=== PATIENT | male | born 1970 | race Caucasian/White ===

== ENCOUNTER 2018-06-10 11:22 | Inpatient (IN) | payer MEDICAID ==
[2018-06-10] MEDS ORDERED: LORazepam INJ* 2 MG/ML 1 ML VIAL IV PUSH ONE ×4 (11:49→16:46)
[2018-06-10] MEDS ORDERED: NS 0.9% 1000 ML* 1,000 ML IV ONE (11:49)
[2018-06-10] MEDS ORDERED: Thiamine IV* 100 MG, Folic Acid IV* 1 MG, Multiple Vitamin IV ADULT* 10 ML in NS 0.9% 1... IV ONE (11:50)
--- NOTE | 2018-06-10 11:51 | ED ---
Syncope/Near Syncope - HPI Summary HPI Summary: This is saman Gonzalez documenting for attending Ernestina Gaffney M.D. Pt is a 48 y/o M BIBA w/ c/o a seizure onsetting today at 1000. Pt was at a musical festival today when seizure occurred. Seizure was witnessed by his partner. Pt denies Hx of seizures and states this is his first. He notes he is an alcoholic and normally drinks about 6 beers per day. He reports that he has not had any alcohol in the past 8 hours and needs alcohol to maintain function. Pt believes lack of alcohol could have induced seizure. In the room, he reports that he is, "not feeling bad". On triage, pain is denied. However, in room he notes left shoulder pain. He reports Hx of dislocating this shoulder. Pain onset of shoulder was after seizure. He notes that he smokes marijuana, denies any relevant medical conditions, and reports NKDA. - History Of Current Complaint Chief Complaint: EDSeizure Time Seen by Provider: 06/10/18 11:28 Hx Obtained From: Patient Onset/Duration: Sudden Onset, Resolved - no longer syncopal Timing: Hours - onset reported to be at 1000 today Context: Witnessed - Pt reports partner witnessed Activity At Onset: Other - at music festival Aggravating Factor(s): Other - possibly alcohol withdrawal Alleviating Factor(s): Nothing Associated Signs And Symptoms: Other - No other associated symptoms noted by Pt - Allergies/Home Medications Allergies/Adverse Reactions: Allergies Allergy/AdvReac Type Severity Reaction Status Date / Time No Known Allergies Allergy Verified 06/10/18 11:34 Home Medications: Home Medications NK [No Home Medications Reported] 06/10/18 [History Confirmed 06/10/18] PMH/Surg Hx/FS Hx/Imm Hx Sensory History: Denies: Hx Legally Blind, Hx Deafness Opthamlomology History: Denies: Hx Legally Blind EENT History: Denies: Hx Deafness Infectious Disease History: No Infectious Disease History: Denies: Traveled Outside the [place] in Last 30 Days - Family History Known Family History: Negative: Blood Disorder - Social History Alcohol Use: Daily - reports 6 beers per day is typical amount Substance Use Type: Reports: Marijuana Smoking Status (MU): Heavy Every Day Tobacco Smoker Review of Systems Negative: Fever Positive: Syncope - resolved All Other Systems Reviewed And Are Negative: Yes Physical Exam - Summary Physical Exam Summary: GENERAL: Patient is a well developed and nourished male who is lying comfortable in the stretcher. Patient is not in any acute respiratory distress. Tremors are noted in Pt. HEAD AND FACE: Normocephalic EYES: PERRLA, EOMI x 2. EARS: Hearing grossly intact. MOUTH: Oropharynx within normal limits. NECK: Supple, trachea is midline, no adenopathy, no JVD, no carotid bruit. CHEST: Symmetric, no tenderness at palpation LUNGS: Clear to auscultation bilaterally. No wheezing or crackles. CVS: Regular rate and rhythm, S1 and S2 present, no murmurs or gallops appreciated. ABDOMEN: Soft, non-tender. Bowel sounds are normal. No abdominal abnormal pulsations. EXTREMITIES: Full ROM in all major joints, no edema, no cyanosis or clubbing. Tenderness to palpation of the left shoulder. NEURO: Alert and oriented x 3. No acute neurological deficits. Speech is normal and follows commands. GCS 15 SKIN: Dry and warm Triage Information Reviewed: Yes Vital Signs On Initial Exam: Initial Vitals Temp Pulse Resp BP Pulse Ox 99.7 F 88 16 147/99 97 06/10/18 11:29 06/10/18 11:29 06/10/18 11:29 06/10/18 11:29 06/10/18 11:29 Vital Signs Reviewed: Yes - [place] Coma Scale Best Eye Response: 4 - Spontaneous Best Motor Response: 6 - Obeys Commands Best Verbal Response: 5 - Oriented Coma Scale Total: 15 Diagnostics - Vital Signs Vital Signs Temp Pulse Resp BP Pulse Ox 06/10/18 11:29 99.7 F 88 16 147/99 97 - Laboratory Result Diagrams: 06/10/18 12:46 06/10/18 12:46 Lab Statement: Any lab studies that have been ordered have been reviewed, and results considered in the medical decision making process. - Radiology humerus left x-ray Radiology Interpretation Completed By: Radiologist - Subacute to chronic appearing fracture of the lateral clavicle osteoarthritis. This report was reviewed by ED physician. 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 This report was reviewed by ED physician. Re-Evaluation - Re-Evaluation First Eval Re-Evaluation Time: 11:58 Comment: Pt vomited in the room. It was noted there appeared to be a little blood in the vomit. Dr. Gaffney gave IV and Zofran to Pt. Second Eval Re-Evaluation Time: 15:39 Comment: Pt is apparently hallucinating and trying to touch everything in the room. Dr. Gaffney talked with patient. Pt appears agitated. Third Eval Re-Evaluation Time: 16:02 Comment: Pt informed they will be brought to ICU soon. Course/Dx Assessment/Plan: Pt is a 48 y/o M BIBA w/ c/o a seizure onsetting today at 1000. Pt was at a musical festival today when seizure occurred. Seizure was witnessed by his partner. Pt denies Hx of seizures and states this is his first. He notes he is an alcoholic and normally drinks about 6 beers per day. He reports that he has not had any alcohol in the past 8 hours and needs alcohol to maintain function. Pt believes lack of alcohol could have induced seizure. In the room, he reports that he is, "not feeling bad". On triage, pain is denied. However, in room he notes left shoulder pain. He reports Hx of dislocating this shoulder. Pain onset of shoulder was after seizure. He notes that he smokes marijuana, denies any relevant medical conditions, and reports NKDA. Physical exam noted tenderness to palpation of left shoulders and that patient is tremulous. GCS was 15. Pt later vomited in the room. There appeared to be a small amount of blood in emesis. Patient was given fluids and Zofran. Left humerus and shoulder x-ray impressions are listed above. Lactic Acid was noted to be 4.0 and sodium 125. At 14:38, Dr. Chavira was consulted. He recommened consulting a hospitalist for possible admission of Pt. At 14:55, Dr. Oneal was consulted. Dr. Oneal accepts Pt for admission. Pt was diagnosed with a seizure and hyponatremia. At 15:39, it was noted that the patient became agitated and was reportedly having visual hallucinations. Pt's admission was upgraded to ICU. Dr. Borden was consulted and came to see Pt in ED at 15:50. Pt accepted to ICU with plan to initiate a precedex drip. - Diagnoses Provider Diagnoses: Hyponatremia, Seizure - Physician Notifications Discussed Care of Patient With: Keith Chavira Time Discussed With Above Provider: 14:38 Instructed by Provider To: Other - Dr. Chavira was consulted at 14:[address] Chavira recommended talking to Dr. Oneal for admission. 14:55 -- Dr. Oneal consulted. She accepts Pt for admission to hospital. 15:50 -- Dr. Borden was consulted about Pt, he suggests getting patient upstairs soon. - Critical Care Time Critical Care Time: 30-74 min Discharge - Sign-Out/Discharge Documenting (check all that apply): Patient Departure - admit - Discharge Plan Condition: Fair Disposition: ADMITTED TO [facility] - Billing Disposition and Condition Condition: FAIR Disposition: Admitted to [facility]
[2018-06-10] MEDS ORDERED: Multiple Vitamin IV ADULT* 10 ML VIAL ONE (11:54)
[2018-06-10] MEDS ORDERED: Ondansetron INJ* 2 MG/ML VIAL IV ONE (11:58)
[2018-06-10] MEDS ORDERED: Pantoprazole IV* 40 MG IV ONE (11:59)
--- NOTE | 2018-06-10 12:48 | RAD ---
HISTORY: injury, chronic left shoulder dislocation COMPARISONS: None VIEWS: 7, Frontal internal rotation, external rotation, and outlet views of the left shoulder with frontal internal and external rotation views of the left humerus. FINDINGS: BONE DENSITY: Normal. BONES: There is a subacute to chronic appearing fracture of the lateral clavicle, with callus formation. The fracture line is still visible. There is no displacement.. JOINTS: There is mild osteoarthritis of the a.c. and glenohumeral joints. ALIGNMENT: There is no dislocation. SOFT TISSUES: Unremarkable. OTHER FINDINGS: None. IMPRESSION: SUBACUTE TO CHRONIC APPEARING FRACTURE OF THE LATERAL CLAVICLE. OSTEOARTHRITIS.
[2018-06-10 13:10] LABS: ABS Basophils 0 10^3/ul (0-0.2); ABS Eosinophils 0 10^3/ul (0-0.6); ABS Lymphocytes 0.4 10^3/ul (1.0-4.8); ABS Monocytes 0.8 10^3/ul (0-0.8); ABS Neutrophils 6.1 10^3/ul (1.5-7.7); ABS Nucleated RBC 0 10^3/ul; Eosinophil % 0.1 % (0-6); Hematocrit 34 % (42-52); Hemoglobin 11.6 g/dl (14.0-18.0); Lymphocyte % 6.1 % (25-47); Mean Corpuscular HGB Conc 34 g/dl (31-36); Mean Corpuscular Hemoglobin 31 pg (27-31); Mean Corpuscular Volume 91 fL (80-94); Mean Platelet Volume 8.7 um3 (7.4-10.4); Nucleated Red Blood Cells % 0; Platelet Count 118 10^3/ul (150-450); Red Blood Count 3.79 10^6/ul (4.00-5.40); Red Cell Distribution Width 17 % (10.5-15); White Blood Count 7.3 10^3/ul (3.5-10.8)
[2018-06-10 13:22] LABS: EGFR Non-African American 148.9 (>60)
[2018-06-10] MEDS ORDERED: LORazepam INJ* 2 MG/ML 1 ML VIAL ONE ×2 (14:23→16:47)
[2018-06-10] MEDS ORDERED: Thiamine IV 100 MG, Folic Acid IV* 1 MG, Multiple Vitamin IV ADULT* 10 ML in NS 0.9% 10... IV ONE (15:19)
[2018-06-10] MEDS ORDERED: NS 0.9% 1000 ML* 1,000 ML IV SCH (15:30)
[2018-06-10 15:51] LABS: INR 0.92 (0.77-1.02)
--- NOTE | 2018-06-10 16:11 | CONSULT ---
Consult Consult: PCCM Consult CC: Seizure HPI: 48M with h/o alcohol dependence presents with a seizure. The patient is confused and provides limited history. Majority of history obtained from his health care proxy/significant other. Patient drinks approximately 12 beers per day since the age of 19. Last drink was at 5am. After about 8 hours without alcohol he begins to get tremors. He fell over on the cough and began shaking. He does not remember the incident. He has never had any seizures before. Denies any head trauma. ROS - 10 systems reviewed with the patient and are negative except where stated in the HPI PMHx - EtoH dependence PSHx - hand surgery All - nkda SocHx - 12 beers daily, +smoker, denies drugs FamHx - denies PE Vital Signs: Temp Pulse Resp BP Pulse Ox 99.7 F 98 16 147/99 99 06/10/18 11:29 06/10/18 12:00 06/10/18 14:35 06/10/18 11:29 06/10/18 12:00 Gen - frail, tremulous, poor hygeine HEENT - NCAT, EMOI Neck - no jvd, no thyromegaly CV - s1/s2, no murmur Pulm - cta, no wheeze Abd - soft, nt Ext - no c/c/e Neuro - tremulous, awake and following commands but confused Labs Laboratory Results - last 24 hr 06/10/18 06/10/18 06/10/18 12:45 12:45 12:46 WBC 7.3 RBC 3.79 L Hgb 11.6 L Hct 34 L MCV 91 MCH 31 MCHC 34 RDW 17 H Plt Count 118 L MPV 8.7 Neut % (Auto) 83.0 Lymph % (Auto) 6.1 L Roosevelt % (Auto) 10.4 H Eos % (Auto) 0.1 Baso % (Auto) 0.4 Absolute Neuts (auto) 6.1 Absolute Lymphs (auto) 0.4 L Absolute Monos (auto) 0.8 Absolute Eos (auto) 0 Absolute Basos (auto) 0 Absolute Nucleated RBC 0 Nucleated RBC % 0 INR (Anticoag Therapy) 0.92 Sodium Potassium Chloride Carbon Dioxide Anion Gap BUN Creatinine Est GFR ( Amer) Est GFR (Non-Af Amer) BUN/Creatinine Ratio Glucose Lactic Acid 4.0 H* Calcium Magnesium Total Bilirubin AST ALT Alkaline Phosphatase Total Protein Albumin Globulin Albumin/Globulin Ratio Cortisol Serum Alcohol 06/10/18 12:46 WBC RBC Hgb Hct MCV MCH MCHC RDW Plt Count MPV Neut % (Auto) Lymph % (Auto) Roosevelt % (Auto) Eos % (Auto) Baso % (Auto) Absolute Neuts (auto) Absolute Lymphs (auto) Absolute Monos (auto) Absolute Eos (auto) Absolute Basos (auto) Absolute Nucleated RBC Nucleated RBC % INR (Anticoag Therapy) Sodium 125 L Potassium 3.4 L Chloride 88 L Carbon Dioxide 23 Anion Gap 14 H BUN 3 L Creatinine 0.58 L Est GFR ( Amer) 180.2 Est GFR (Non-Af Amer) 148.9 BUN/Creatinine Ratio 5.2 L Glucose 110 H Lactic Acid Calcium 8.9 Magnesium 1.2 L Total Bilirubin 2.00 H AST 116 H ALT 36 Alkaline Phosphatase 149 H Total Protein 6.8 Albumin 3.4 Globulin 3.4 Albumin/Globulin Ratio 1.0 Cortisol 47.20 Serum Alcohol < 10 Imagin06/10/18 Left Shoulder Xray IMPRESSION:SUBACUTE TO CHRONIC APPEARING FRACTURE OF THE LATERAL CLAVICLE. OSTEOARTHRITIS. Impression: 48M with etoh dependence presents with etoh withdrawal seizure / delirium tremens. Hyponatremia Neuro - DTs - ativan per protocol - fall/seizure precautions - may need precedex gtt - antiemetics prn - SW/PT consults CV - - hemodynamically stable Pulm - oxygenating well on room air ID - no evidence of infection - monitor fever curve GI / Nutrition - thiamine / folate / mvi - nutrition consult - diet as tolerated Renal - hyponatremia - 2/2 beer potomania - check urine lytes - check serum osm - replete magnesium Heme - monitor cbc Endo - check tsh/cortisol - check fs Lines - piv PPx - gi/dvt Ethics - discussed with HCP at bedside thinks patient would want to be DNR but needs to discuss with him further Critical Care Time: 50 minutes
[2018-06-10] MEDS ORDERED: PHENobarbital SODIUM(*) 65 MG/ML VIAL IV ONE ×2 (16:53)
[2018-06-10] MEDS ORDERED: PHENobarbital SODIUM(*) 65 MG/ML VIAL ONE (16:58)
[2018-06-10] MEDS ORDERED: Magnesium Sulfate IV* 2 GM in NS 0.9% 100 ML* 100 ML IVPB ONE (17:00)
[2018-06-10] MEDS ORDERED: NS 0.9% 100 ML* 100 ML ONE (17:22)
[2018-06-10] MEDS: KCL 10 MEQ/50 ML IVPREMIX* 10 MEQ/50 ML BAG IV SCH ×3 (17:35→21:55)
[2018-06-10] MEDS: LORazepam INJ* 2 MG/ML 1 ML VIAL IV PUSH SCH ×2 (18:30→22:18)
[2018-06-10 18:49] LABS: Urine Appearance Clear; Urine Blood Negative (Negative); Urine Color Straw; Urine Ketones Negative (Negative); Urine Protein Negative (Negative); Urine Specific Gravity 1.002 (1.010-1.030); Urine Urobilinogen Negative (Negative)
[2018-06-10] MEDS: Dexmedetomidine* 400 MCG in NS 0.9% 100 ML* 96 ML IVPB SCH (19:14)
[2018-06-10] MEDS: LORazepam INJ* 2 MG/ML 1 ML VIAL IV SCH ×2 (19:24→23:55)
--- NOTE | 2018-06-10 19:34 | HP ---
CC: Dr. Chavira * HISTORY AND PHYSICAL: DATE OF ADMISSION: 06/10/18 PRIMARY CARE PROVIDER: None. ATTENDING PHYSICIAN WHILE IN THE HOSPITAL: Dr. Raysa Oneal * (report dictated by Paddy Lamar NP). CONSULTING NEUROLOGIST: Dr. Chavira. CHIEF COMPLAINT: Seizure. HISTORY OF PRESENT ILLNESS: I would like to preface the report by saying that the patient is undergoing what appears to be DTs. He has a long-standing history of heavy alcoholism and had a seizure today, it is also postictal. Most of the history is really unable to be obtained from the patient. Last thing he remembers is he was asking his partner for a beer at [employer] and then, the partner turned away and then the next thing she knew was he was on the ground, biting his lips, he was shaking, he was grunting, he was confused. He did not know where he was. She was thinking that he was having a seizure according to the partner. She called 911. He does not recall this. To the patient's knowledge, he has never had a seizure before. Apparently, there were no reports of history of seizures. He has had trouble with alcoholism for some time. He has been with this partner for about 6 years and as long as she has known him, he has been heavy drinker. There have been also reports of head trauma in the past as a child, but he again never had any further workup for that. He had what appeared to be again a seizure like episode today. He was brought into the hospital. His alcohol level was less than 10. He was noted to be delirious, confused, again very restless and agitated. He appeared to be going through withdrawals. We were asked to evaluate for admission. PAST MEDICAL HISTORY: Denied. PAST SURGICAL HISTORY: He has had surgery on his finger. MEDICATIONS: Home meds denied. ALLERGIES TO MEDICATIONS: Include no known drug allergies. FAMILY HISTORY: His mother was also an alcoholic. She had a history of breast cancer and father's history was reviewed, but noncontributory. There were no reports of alcoholism with his father. As far as they know he believes he was healthy. Again, this was obtained from the partner. SOCIAL HISTORY: He is about a 4-grsn-a-day smoker. He has been smoking from teenage years. He is a musician. He does drink about 12 beers canned beer a day. He does smoke marijuana occasionally. There were no reports of any other illicit drug use. Surrogate decision maker is unable to be obtained at this point as the patient cannot appoint one. REVIEW OF SYSTEMS: Unable to be obtained directly from the patient given the fact that he is again very delirious. PHYSICAL EXAMINATION GENERAL: At this time, Mr. Cadet is a 48-year-old male patient. He is sitting in the ED stretcher. He clearly appears to be again delirious. He does appear to be actively withdrawn. He appears to be well nourished and well developed. VITAL SIGNS: Blood pressure 147/99, pulse 88, respirations 16, O2 sat 97%, temperature 99.7. HEENT: Head: Atraumatic and normocephalic. Eyes: EOMs are intact. Sclerae anicteric and not pale. Throat: Oral mucosa appears to be dry. No oropharyngeal erythema. NECK: Supple. LUNGS: Clear to auscultation bilaterally. No wheezes, rales, or rhonchi. HEART: Sounds S1, S2. Regular rate and rhythm. No murmurs, rubs, or gallops. ABDOMEN: Soft, flat, nontender with bowel sounds are present. EXTREMITIES: Pulses were 2+ throughout. He is moving all 4 extremities. NEUROLOGICAL: Again, he is alert to himself. He knows his name. He knows he is in the hospital. He thinks he is in [place]. He is confused to the month. Again, grossly he is moving all his 4 extremities. He follows very simple commands at this point. He does have verbal response to verbal stimuli. His speech was clear. His tongue was midline. He had not gross obvious focal deficits. SKIN: His skin was intact. DIAGNOSTIC STUDIES/LAB DATA: His labs today are revealing a WBC of 7.3, RBC of 3.79, hemoglobin of 11.6, hematocrit 34, platelet count of 118. INR is pending. His sodium was 125, potassium was 3.4, chloride was 88, bicarb 23, BUN 3, creatinine of 0.58, glucose was 110, lactate 4, calcium 8.9. Total bili 2, AST 16, ALT 36, alk phos 149. Albumin 3.4. Toxicology was negative for alcohol. Brain CT is pending. Shoulder x-ray showed a [id number] appearing fracture of the lateral clavicle, osteoarthritis. Humerus x-ray again shows [id number] appearing fracture of the lateral clavicle, osteoarthritis. Head CT and neck CT are pending. Old medical records were reviewed. ASSESSMENT AND PLAN: Mr. Cadet is a 48-year-old male patient coming into the ED today with complaints of seizure-like activity and delirium. We were asked to evaluate for admission. He will be admitted under inpatient status for: 1. Seizure. I expect that this is probably secondary to alcohol withdrawal given his history. We would like to get a CT brain. I am going to try to give him Ativan to try to get him calm enough to get the CT. As of right now, he is very restless and moving all over and cannot sit still. A CT at this point would be not beneficial. I would like try to use the benzos to get him calm, so we can get this done, and I suspect the reason he is so agitated and delirious again because of EtOH withdrawal. He may have other drugs on board, U -tox is pending. Dr. Chavira will be in to evaluate the patient. 2. Alcoholism. At this point, I do offer a social work consult. I am giving him banana bag. I will also place thiamine and folate. I am checking INR. 3. Hyponatremia. Again, probably secondary to alcoholism, but I am sending off urine random sodium, urine osmol, serum osmol, TSH, and cortisol. I will hydrate him with normal saline. Repeat that at 1800 to make sure that those electrolytes are correcting appropriately. We will continue to follow him. 4. Lactic acidosis. It is probably secondary to seizure. We will repeat this. I do not think he is actively infected. I did add on a CK because of the possible seizure as well. 5. Hypokalemia. I am repeating. 6. Thrombocytopenia. Probably secondary to alcoholism, we will monitor this. 7. Elevated LFTs. Again probably secondary to alcoholism, I am going to trend these and repeat these tomorrow. 8. DVT prophylaxis. We will order SCDs. 9. Code status. Full code. 10. Fluids, electrolytes, and nutrition. He can have a regular diet should he cooperate. TIME SPENT: On admission was 60 minutes, greater than half of the time was spent [id number] with the patient obtaining my history and physical, other half of the time spent going over the plan of care with the patient and implementing the plan of care. I did discuss the plan of care with my attending, Dr. Oneal, she is in agreement. PADDY LAMAR, BRITTNY [id number]/[facility] #: [id number] ANGELI
[2018-06-10 21:17] LABS: EGFR Non-African American 123.9 (>60)
--- NOTE | 2018-06-10 21:20 | CONS ---
NEUROLOGY CONSULTATION: DATE OF CONSULT: 06/10/18 LOCATION: He is in ICU, bed 3. REFERRING PROVIDER: Paddy Lamar NP CHIEF COMPLAINT: Seizures, delirium. HISTORY OF PRESENT ILLNESS: Tomás Cadet is a 48-year-old man, who was brought into the emergency room after a seizure [place] [employer]. He is reportedly a heavy drinker and has been for decades. He had not had any alcohol apparently in the order of 8 hours or so. He convulsed and hit the ground and was brought into the emergency room. In the emergency room, he had an agitated delirium. He had a number of electrolyte abnormalities listed below. He was given multiple doses of Ativan. He was not able to get a CT scan of the head because of his agitation. He was given intravenous multivitamins including thiamine and folic acid. Potassium was supplemented as well as magnesium. There are no other records available. A friend who has known him for 6 years is present. She confirms he is a heavy drinker. She says that to her knowledge, he has never had a seizure before. Apparently, he is on no medications at home. MEDICATIONS: He is currently on include: 1. Folic acid, lorazepam by [facility] protocol and p.r.n. 2. Magnesium and potassium have been supplemented. 3. He has received 1 dose of IV Protonix. 4. 60 mg of 1 dose of IV phenobarbital and another 65 mg dose. ALLERGIES: He is listed as having no allergies, although he is not able to provide history himself. SOCIAL HISTORY: Substance use includes daily alcohol, heavy tobacco smoke, marijuana. His friend of 6 years says that the only drug that he does that she is aware of when he was younger. REVIEW OF SYSTEMS: Otherwise is unobtainable. PHYSICAL EXAM: He is sedated, thin, somewhat poorly kempt individual, lying in the intensive care unit bed. He has mittens on because of his restlessness. He has temperature of 101.5 by temporal scan, blood pressure 140/98, heart rate around 100, respiratory rate in the 20s with 96% oxygen saturation. He has abrasion on his left knee and the back of his left hamstring. Head is atraumatic. Oral mucosa is dry and dentition is poor, but I do not see any oral trauma. Heart is in a regular rhythm without murmurs. There are no cervical bruits. On neurologic exam, pupils are small, perhaps 2 mm, reacting minimally to light. Eye movements are roving disconjugate. Funduscopic exam reveals sharp discs seen just briefly in the left eye and the right eye. Facial sensation at nasal tickle is weakly symmetrical. He seems to be mouthing words intermittently. He does not open his eyes spontaneously. He is moving his hands restlessly and continuously. He is moving his legs restlessly, but not very often. Muscle tone seems increased in all limbs. There is no myoclonus or asterixis noted. Reflexes are brisk in his lower extremities. He has a right Babinski sign where the left is equivocal. DIAGNOSTIC STUDIES/LAB DATA: Includes a serum alcohol less than 10. Chemistry profile with initial sodium of 125, potassium 3.4, anion gap 14, BUN is just 3, and creatinine 0.58. Glucose is 110, serum osmolality low at 260. Lactic acid at presentation was 4.0. Magnesium was low at 1.2. Total bilirubin high at 2, AST and alkaline phosphatase are elevated. Creatine kinase elevated at 859. INR is normal at 0.92. Initial CBC notable for hemoglobin of 11.6, platelet count of 118,000, white blood cell count 7.3. IMPRESSION: Probable alcohol withdrawal seizures. He has multiple electrolyte abnormalities and some liver function abnormalities as well. He is starting to spike a temperature and infection is a possibility as well. PLAN: He needs a CT scan of his brain to rule out intracranial hemorrhage. If his fever continues to mount and no source is found, he should have a lumbar puncture done. He may need stronger sedation and intubation. Discussed my recommendations with Dr. Garcia. An EEG is currently being attempted, but he is pretty restless and I do not get any useful information. When he is more sedated, we can try to repeat it if not. I would hold off on anticonvulsants now other than benzodiazepine protocol and the phenobarbital that he has already received. If his EEG shows epileptiform activity, then that recommendation will change. We will continue to follow him along with you. Dr. Erin Bose will be extension service advisor as of [facility] and this weekend. I will sign off his case to her. [id number]/[facility] #: [id number] HUDSON VALLEY HOSPITALRafael
[2018-06-10] MEDS ORDERED: KCL 10 MEQ/50 ML IVPREMIX* 10 MEQ/50 ML BAG ONE (21:54)
--- NOTE | 2018-06-10 22:25 | RAD ---
Indication: Seizure. Comparison: No relevant prior exams available on the [facility] PACS for comparison. Technique: Noncontrast CT vertex of skull through foramen magnum. Report: Motion artifact degrades image quality. Moderate prominence of the cerebral sulci and proportional enlargement of the ventricles. Patent basal cisterns. Decreased density in the periventricular and subcortical white matter while non-specific is most likely due to chronic microangiopathy. Negative for [place] matter white matter obscuration, intra or extra-axial hemorrhage, or mass effect. No suspicious calvarial or skull base lesion evident. Clear paranasal sinuses and mastoid air spaces. Negative for scalp hematoma. IMPRESSION: #. No acute intracranial process evident. #. Involutional change and stigmata of chronic small vessel ischemic disease.
--- NOTE | 2018-06-10 22:29 | RAD ---
INDICATION: Seizure. COMPARISON: No relevant prior exams available on the [facility] for comparison. TECHNIQUE: Multidetector CT images foramen magnum to lung apices without contrast. Multiplanar reformation. REPORT: Normal vertebral alignment accounting for exam positioning without spondylolisthesis or subluxation at any level. Negative for cervical vertebral body or posterior element fracture. Negative for paravertebral hematoma. At C4-C5 there is moderate disc space narrowing. Uncinate process spurring and facet joint osteoarthritis results in mild LEFT foraminal stenosis. At C5-C6 there is severe disc space narrowing. Dorsal disc osteophyte complex results in only mild impression on the ventral margin of the thecal sac. Uncinate process spurring and facet joint osteoarthritis results in moderate LEFT foraminal stenosis. IMPRESSION: #. No CT evidence for traumatic cervical spine injury.
[2018-06-11 00:39] LABS: EGFR Non-African American 168.9 (>60)
[2018-06-11] MEDS: LORazepam INJ* 2 MG/ML 1 ML VIAL IV PUSH SCH ×9 (02:06→22:14)
[2018-06-11] MEDS: Dexmedetomidine* 400 MCG in NS 0.9% 100 ML* 96 ML IVPB SCH ×4 (04:25→23:10)
[2018-06-11 05:27] LABS: ABS Basophils 0 10^3/ul (0-0.2); ABS Eosinophils 0.1 10^3/ul (0-0.6); ABS Lymphocytes 0.8 10^3/ul (1.0-4.8); ABS Monocytes 0.6 10^3/ul (0-0.8); ABS Neutrophils 4.4 10^3/ul (1.5-7.7); ABS Nucleated RBC 0 10^3/ul; Eosinophil % 1.8 % (0-6); Hematocrit 31 % (42-52); Hemoglobin 10.9 g/dl (14.0-18.0); Lymphocyte % 13.1 % (25-47); Mean Corpuscular HGB Conc 35 g/dl (31-36); Mean Corpuscular Hemoglobin 32 pg (27-31); Mean Corpuscular Volume 91 fL (80-94); Mean Platelet Volume 8.5 um3 (7.4-10.4); Nucleated Red Blood Cells % 0; Platelet Count 108 10^3/ul (150-450); Red Blood Count 3.41 10^6/ul (4.00-5.40); Red Cell Distribution Width 16 % (10.5-15); White Blood Count 5.9 10^3/ul (3.5-10.8)
[2018-06-11 05:45] LABS: EGFR Non-African American 180.9 (>60)
--- NOTE | 2018-06-11 07:55 | PN ---
Date of Service: 06/11/18 Critical Care Services: 48M with etoh dependence presents with DTs/Withdrawal seizure/hyponatremia 06/11: patient on precedex gtt. ct head neg for bleed. hyponatremia resolved. Vital Signs: Temp Pulse Resp BP SpO2 FiO2 97.0 F 58 17 146/83 91 06/11/18 06:00 06/11/18 06:00 06/11/18 06:05 06/11/18 06:00 06/11/18 06:00 Physical Exam: Gen - frail, tremulous, poor hygeine HEENT - NCAT, EMOI Neck - no jvd, no thyromegaly CV - s1/s2, no murmur Pulm - cta, no wheeze Abd - soft, nt Ext - no c/c/e Neuro - tremulous, altered, not following commands, moving all extremities Fluid Balance (Past 24 Hours): I= O= Net Intake & Output 06/09/18 06/10/18 06/11/18 06/12/18 06:59 06:59 06:59 06:59 Intake Total 2378.7 Output Total 1701 Balance 677.7 Weight 58 kg Intake: IV Fluids 2004 Banana Bag 1033 NS (0.9%) 972 IVPB 303 KCl and Mg 303 Medicated IV 70.7 CC - Dexmedetomidine/ 70.7 Precedex Output: Urine 175 Powell 1526 Other: # Voids 1 Labs: Laboratory Results - last 24 hr 06/10/18 06/10/18 06/10/18 12:45 12:45 12:46 WBC 7.3 RBC 3.79 L Hgb 11.6 L Hct 34 L MCV 91 MCH 31 MCHC 34 RDW 17 H Plt Count 118 L MPV 8.7 Neut % (Auto) 83.0 Lymph % (Auto) 6.1 L Socorro % (Auto) 10.4 H Eos % (Auto) 0.1 Baso % (Auto) 0.4 Absolute Neuts (auto) 6.1 Absolute Lymphs (auto) 0.4 L Absolute Monos (auto) 0.8 Absolute Eos (auto) 0 Absolute Basos (auto) 0 Absolute Nucleated RBC 0 Nucleated RBC % 0 INR (Anticoag Therapy) 0.92 Sodium Potassium Chloride Carbon Dioxide Anion Gap BUN Creatinine Est GFR ( Amer) Est GFR (Non-Af Amer) BUN/Creatinine Ratio Glucose Serum Osmolality Lactic Acid 4.0 H* Calcium Magnesium Total Bilirubin AST ALT Alkaline Phosphatase Total Creatine Kinase Total Protein Albumin Globulin Albumin/Globulin Ratio Cortisol Urine Color Urine Appearance Urine pH Ur Specific Conway Urine Protein Urine Ketones Urine Blood Urine Nitrate Urine Bilirubin Urine Urobilinogen Ur Leukocyte Esterase Urine Osmolality Ur Random Sodium Urine Glucose Urine Opiates Screen Ur Barbiturates Screen Ur Phencyclidine Scrn Ur Amphetamines Screen U Benzodiazepines Scrn Urine Cocaine Screen U Cannabinoids Screen Serum Alcohol 06/10/18 06/10/18 06/10/18 12:46 12:46 18:35 WBC RBC Hgb Hct MCV MCH MCHC RDW Plt Count MPV Neut % (Auto) Lymph % (Auto) Socorro % (Auto) Eos % (Auto) Baso % (Auto) Absolute Neuts (auto) Absolute Lymphs (auto) Absolute Monos (auto) Absolute Eos (auto) Absolute Basos (auto) Absolute Nucleated RBC Nucleated RBC % INR (Anticoag Therapy) Sodium 125 L Potassium 3.4 L Chloride 88 L Carbon Dioxide 23 Anion Gap 14 H BUN 3 L Creatinine 0.58 L Est GFR ( Amer) 180.2 Est GFR (Non-Af Amer) 148.9 BUN/Creatinine Ratio 5.2 L Glucose 110 H Serum Osmolality 260 L Lactic Acid Calcium 8.9 Magnesium 1.2 L Total Bilirubin 2.00 H AST 116 H ALT 36 Alkaline Phosphatase 149 H Total Creatine Kinase 859 H Total Protein 6.8 Albumin 3.4 Globulin 3.4 Albumin/Globulin Ratio 1.0 Cortisol 47.20 Urine Color Urine Appearance Urine pH Ur Specific Conway Urine Protein Urine Ketones Urine Blood Urine Nitrate Urine Bilirubin Urine Urobilinogen Ur Leukocyte Esterase Urine Osmolality Ur Random Sodium Urine Glucose Urine Opiates Screen None detected Ur Barbiturates Screen Presumptive positive A Ur Phencyclidine Scrn None detected Ur Amphetamines Screen None detected U Benzodiazepines Scrn None detected Urine Cocaine Screen None detected U Cannabinoids Screen Presumptive positive A Serum Alcohol < 10 06/10/18 06/10/18 06/10/18 18:35 18:35 18:35 WBC RBC Hgb Hct MCV MCH MCHC RDW Plt Count MPV Neut % (Auto) Lymph % (Auto) Socorro % (Auto) Eos % (Auto) Baso % (Auto) Absolute Neuts (auto) Absolute Lymphs (auto) Absolute Monos (auto) Absolute Eos (auto) Absolute Basos (auto) Absolute Nucleated RBC Nucleated RBC % INR (Anticoag Therapy) Sodium Potassium Chloride Carbon Dioxide Anion Gap BUN Creatinine Est GFR ( Amer) Est GFR (Non-Af Amer) BUN/Creatinine Ratio Glucose Serum Osmolality Lactic Acid Calcium Magnesium Total Bilirubin AST ALT Alkaline Phosphatase Total Creatine Kinase Total Protein Albumin Globulin Albumin/Globulin Ratio Cortisol Urine Color Straw Urine Appearance Clear Urine pH 6.0 Ur Specific Conway 1.002 L Urine Protein Negative Urine Ketones Negative Urine Blood Negative Urine Nitrate Negative Urine Bilirubin Negative Urine Urobilinogen Negative Ur Leukocyte Esterase Negative Urine Osmolality 102 L Ur Random Sodium 29 Urine Glucose Negative Urine Opiates Screen Ur Barbiturates Screen Ur Phencyclidine Scrn Ur Amphetamines Screen U Benzodiazepines Scrn Urine Cocaine Screen U Cannabinoids Screen Serum Alcohol 06/10/18 06/10/18 06/10/18 19:00 19:00 20:45 WBC RBC Hgb Hct MCV MCH MCHC RDW Plt Count MPV Neut % (Auto) Lymph % (Auto) Socorro % (Auto) Eos % (Auto) Baso % (Auto) Absolute Neuts (auto) Absolute Lymphs (auto) Absolute Monos (auto) Absolute Eos (auto) Absolute Basos (auto) Absolute Nucleated RBC Nucleated RBC % INR (Anticoag Therapy) Sodium Cancelled 139 D Potassium Cancelled 3.8 Chloride Cancelled 102 Carbon Dioxide Cancelled 26 Anion Gap Cancelled 11 BUN Cancelled 2 L Creatinine Cancelled 0.68 Est GFR ( Amer) Cancelled 150.0 Est GFR (Non-Af Amer) Cancelled 123.9 BUN/Creatinine Ratio Cancelled 2.9 L Glucose Cancelled 103 H Serum Osmolality Lactic Acid 2.1 H* Calcium Cancelled 8.8 Magnesium Total Bilirubin AST ALT Alkaline Phosphatase Total Creatine Kinase Total Protein Albumin Globulin Albumin/Globulin Ratio Cortisol Urine Color Urine Appearance Urine pH Ur Specific Conway Urine Protein Urine Ketones Urine Blood Urine Nitrate Urine Bilirubin Urine Urobilinogen Ur Leukocyte Esterase Urine Osmolality Ur Random Sodium Urine Glucose Urine Opiates Screen Ur Barbiturates Screen Ur Phencyclidine Scrn Ur Amphetamines Screen U Benzodiazepines Scrn Urine Cocaine Screen U Cannabinoids Screen Serum Alcohol 06/11/18 06/11/18 06/11/18 00:02 05:14 05:14 WBC 5.9 RBC 3.41 L Hgb 10.9 L Hct 31 L MCV 91 MCH 32 H MCHC 35 RDW 16 H Plt Count 108 L MPV 8.5 Neut % (Auto) 74.2 Lymph % (Auto) 13.1 L Socorro % (Auto) 10.6 H Eos % (Auto) 1.8 Baso % (Auto) 0.3 Absolute Neuts (auto) 4.4 Absolute Lymphs (auto) 0.8 L Absolute Monos (auto) 0.6 Absolute Eos (auto) 0.1 Absolute Basos (auto) 0 Absolute Nucleated RBC 0 Nucleated RBC % 0 INR (Anticoag Therapy) Sodium 140 140 Potassium 3.3 L 3.0 L Chloride 108 108 Carbon Dioxide 23 23 Anion Gap 9 9 BUN 2 L 2 L Creatinine 0.52 L 0.49 L Est GFR ( Amer) 204.4 218.9 Est GFR (Non-Af Amer) 168.9 180.9 BUN/Creatinine Ratio 3.8 L 4.1 L Glucose 97 78 Serum Osmolality Lactic Acid Calcium 7.9 L 8.1 L Magnesium Total Bilirubin 1.50 H AST 124 H ALT 42 Alkaline Phosphatase 109 H Total Creatine Kinase Total Protein 5.7 L Albumin 2.9 L Globulin 2.8 Albumin/Globulin Ratio 1.0 Cortisol Urine Color Urine Appearance Urine pH Ur Specific Conway Urine Protein Urine Ketones Urine Blood Urine Nitrate Urine Bilirubin Urine Urobilinogen Ur Leukocyte Esterase Urine Osmolality Ur Random Sodium Urine Glucose Urine Opiates Screen Ur Barbiturates Screen Ur Phencyclidine Scrn Ur Amphetamines Screen U Benzodiazepines Scrn Urine Cocaine Screen U Cannabinoids Screen Serum Alcohol Studies: 06/10/18 CT Head IMPRESSION: #. No acute intracranial process evident. #. Involutional change and stigmata of chronic small vessel ischemic disease. 06/10/18 Left Shoulder Xray IMPRESSION:SUBACUTE TO CHRONIC APPEARING FRACTURE OF THE LATERAL CLAVICLE. OSTEOARTHRITIS. Impression: 48M with etoh dependence presents with etoh withdrawal seizure / delirium tremens. Hyponatremia. Malnutrition. Plan: Neuro - DTs - calm but now not following commands - ct head negative - ativan per protocol - precedex gtt - fall/seizure precaution - SW/PT consults CV - - hemodynamically stable Pulm - oxygenating well on minimal o2 ID - no evidence of infection - monitor fever curve GI / Nutrition - severe malnutrition - thiamine / folate / mvi - nutrition consult - ng tube and tube feeds if tolerated Renal - hyponatremia, hypokalemia - hyponatremia resolved with hydration - replete potassium - monitor bmp Heme - monitor cbc Endo - check tsh/cortisol - check fs Lines - piv PPx - gi/dvt Critical Care Time: 40 minutes
[2018-06-11] MEDS: D5LR 1000 ML BAG* 1,000 ML IV SCH (09:03)
[2018-06-11] MEDS: LORazepam INJ* 2 MG/ML 1 ML VIAL IV SCH ×2 (09:04→20:22)
[2018-06-11] MEDS: KCL 10 MEQ/50 ML IVPREMIX* 10 MEQ/50 ML BAG IV SCH ×6 (09:04→20:22)
[2018-06-11] MEDS: Multivitamins/Minerals TAB PO SCH (13:09)
[2018-06-11] MEDS: Thiamine TAB* 100 MG TAB PO SCH (13:09)
[2018-06-11] MEDS: Folic Acid TAB* 1 MG PO SCH (13:09)
--- NOTE | 2018-06-11 14:25 | EEG ---
CC: Dr. Keith Chavira. ELECTROENCEPHALOGRAPHY: DATE OF VISIT: 06/10/18 REQUESTING PHYSICIAN: Dr. Keith Chavira. HISTORY OF PRESENT ILLNESS: Mr. Shantel Cadet is a 48-year-old gentleman admitted to the ICU after a witnessed seizure at the [facility]. He was brought in by EMS and during the triage, he was able to answer questions and stated he remembered all events leading up to the seizure. He vomited in the emergency room and was found to have blood in his emesis. He was transferred to the ICU and at the time of EEG was noted to be mumbling incoherent words, unable to follow commands, restless and agitated. EEG was requested to evaluate for status. The history obtained at bedside, was that the patient was a drinker of 6 beers a day for 20 years. His last beer was at 5 in the morning on 06/10/18. DESCRIPTION OF THE RECORD: This was a 16-channel EEG performed at bedside in the ICU. In the beginning of the record, there was a quite a bit of movement artifact. As it settled down, a symmetric posterior rhythm was noted at approximately 8 Hz. Intermittent movement artifact was noted throughout the record. Once this settled down, there was evidence of attenuation of the posterior rhythm with eye opening. Various movements were noted during the record including moving legs and hands, bouncing the left leg, jerking the left leg, moving the mouth, and during these movements movement artifact was noted. Throughout the record, there was no significant asymmetry of the background activity. Toward the end of the record, there was faster, lower voltage activity noted, which was symmetric. There was no epileptiform activity noted. IMPRESSION: This was a limited EEG. EEG was limited by movement artifacts. Throughout the record, however, there was no evidence of epileptiform activity. Normal background rhythm could be seen during some of the recording. [id number]/[facility] #: [id number] [facility]
[2018-06-11] MEDS ORDERED: Ketorolac INJ* 15 MG/ML 1 ML VIAL IV PUSH ONE (14:40)
[2018-06-11 15:24] LABS: Urine Appearance Clear; Urine Blood 3+ (Negative); Urine Color Yellow; Urine Ketones 1+ (Negative); Urine Protein Negative (Negative); Urine Red Blood Cell 3+(>10/hpf) (Absent); Urine Specific Gravity 1.011 (1.010-1.030); Urine Urobilinogen Negative (Negative); Urine White Blood Cell 1+(6-10/hpf) (Absent)
[2018-06-11 15:30] LABS: EGFR Non-African American 151.9 (>60)
--- NOTE | 2018-06-11 15:39 | RAD ---
Indication: Shortness of breath, fever. Comparison: No relevant prior exams available on the [facility] for comparison. Technique: Semiupright AP 1511 hours Report: Elevated lung volumes and rarefaction of interstitial markings. Alveolar consolidation at the LEFT lung base. Potential small LEFT pleural effusion. Negative for pneumothorax. The heart, pulmonary vasculature, and mediastinal contours are unremarkable. IMPRESSION: #. LEFT basilar airspace consolidation concerning for pneumonia given the clinical context. #. Stigmata of obstructive lung disease.
--- NOTE | 2018-06-11 15:48 | PN ---
AMENDED REPORT NOW INCLUDES DATE OF SERVICE - ESIGNED BEFORE ADJUSTMENT CC: Dr. Chavira FOLLOWUP NOTE: DATE OF SERVICE: 06/11/18 HISTORY OF PRESENT ILLNESS: Mr. Tomás Cadet is a 48-year-old gentleman admitted yesterday after experiencing a seizure at [facility]. He has a history of significant alcohol intake and had been trying to reduce alcohol intake in the setting of [facility]; he is a musician. He did receive phenobarbital, went on to have an EEG, which showed no epileptiform activity. His CT of the brain showed evidence of atrophy with movement artifact. He has been admitted on [facility] protocol in the ICU. His tox screen was positive for barbiturates and cannabinoids. He was noted to have hyponatremia at 125, magnesium 1.4, and potassium 3.4, and it is going through repletion in the ICU. Further history was obtained from his girlfriend, who indicates that at baseline , he does not drive and has not had a license since about 2010. He drinks heavily and has done so since she has known him; she believes, it dates back to at least age 20 when his mother . She has noted progressive weight loss during the 6 years she has known him, and his baseline of 150 pounds was even before she knew him. He has had progressive wide-based gait keeping his feet close to the floor. He had multiple bruises and she indicates that he falls on a regular basis. He has never been through alcohol rehab. He does smoke cigarettes about 2 packs a day. She believes he does smoke marijuana, but denies any knowledge of any other drug use. PHYSICAL EXAMINATION: His most recent blood pressure was 146/83 with a cardiac rate of 59, a temperature of 97, saturation of 91%. He had a regular cardiac rhythm. His lungs were clear to auscultation. He was extremely thin and had multiple bruises noted particularly on his legs at different ages. He was able to open his eyes and give the name of his girlfriend, his age, the fact that he is somewhere near [place] in [place]. He would quickly fall back to sleep or mumble. He was shaky in a tremulous way. He had full extraocular movements with nystagmus bilaterally. His facial expression was symmetric. He counted fingers in all broussard. His tongue was midline. He gave good resistance in his right upper extremity to individual muscle confrontation. In his left upper extremity, we had limited exam because of immobilization of his shoulder. His biceps and triceps were strong. In his lower extremities, he gave good resistance in hip flexion, knee extension, foot dorsiflexion bilaterally. He was not awake and clear enough to be able to participate in further coordination exam. He denied any asymmetries to sharp sensation. Reflexes were 2+ in the upper extremities, 2+ at the knees, absent at the ankles. Toes were upgoing bilaterally. MAR: reviewed. DIAGNOSTIC STUDIES/LAB DATA: Includes white count of 5.9 with hemoglobin and hematocrit of 10.9 and 31, platelets of 108. Metabolic panel with potassium low at 3.0. His BUN was 2 and creatinine was 0.49 with a low BUN and creatinine ratio. His most recent magnesium was 1.2. His total bilirubin was elevated at 1.5 and AST and alk phos were both elevated. Total protein and albumin were both low. His lactate yesterday was 2.1. His tox screen was presumed positive for barbiturates and cannabinoids. His alcohol level on admission was less than 10. CT of the brain performed yesterday showed evidence of atrophy. There was movement artifact. It is read as showing small vessel ischemic disease. This film was reviewed directly. CT of the cervical spine showed no evidence of traumatic spinal injury. His left shoulder x-ray showed a subacute to chronic-appearing fracture of the lateral clavicle as well as osteoarthritis. IMPRESSION: Mr. Cadet is a 48-year-old gentleman admitted to the hospital with seizure in the setting of reduced alcohol use. At baseline, he drinks excessively and there is high suspicion for alcohol withdrawal seizure. He has a history of heavy drinking dating back to the of his mother at approximately his age of 20. There was a history obtained from his girlfriend of progressive wide-based gait, falls, weight loss noted for over 6 years suggest probable central nervous system and peripheral nervous system toxicity of alcohol. Of note, he does not drive at baseline; in the setting of seizure and his excessive alcohol use, he cannot drive. He is currently on [facility] protocol receiving thiamine, folate, and multivitamin. Atrophy was noted on CT of the brain. There was no new mass lesion noted. Education was given regarding alcohol effect on the central nervous system and peripheral nervous system. Education was given regarding seizure, seizure in the setting of withdrawal and treatment. There are electrolyte abnormalities that are being treated. He will need Social Work involvement both for establishing primary care as well as for the potential for alcohol rehab. His girlfriend and his brother are very hopeful for rehab placement; however, we discussed the fact that the patient has to have insight and interest for rehabilitation to be effective. TIME SPENT: Over 60 minutes was spent in [id number] care and for time reviewing chart; over 50% of the time was spent was in education, counseling with girlfriend regarding above topics including CT brain, seizures, alcohol withdrawal, and alcohol is a toxin. All questions were answered. [id number]/[facility] #: [id number] ANGELI
[2018-06-11] MEDS: Nicotine PATCH 21 MG/24 HR* PATCH TRANSDERM SCH (15:53)
[2018-06-11] MEDS ORDERED: Magnesium Sulfate 1 GM IV* 1 GM/100 ML BAG IV ONE (16:00)
[2018-06-12] MEDS: LORazepam INJ* 2 MG/ML 1 ML VIAL IV PUSH SCH ×3 (00:08→04:07)
[2018-06-12] MEDS: D5LR 1000 ML BAG* 1,000 ML IV SCH ×2 (00:10→16:44)
[2018-06-12] MEDS: Dexmedetomidine* 400 MCG in NS 0.9% 100 ML* 96 ML IVPB SCH ×4 (05:14→18:59)
[2018-06-12] MEDS: Nicotine Patch Removal NOTE FOLLOW UP SCH (05:43)
[2018-06-12] MEDS: LORazepam INJ* 2 MG/ML 1 ML VIAL IV SCH ×3 (08:00→23:39)
[2018-06-12] MEDS: Folic Acid TAB* 1 MG PO SCH (08:00)
[2018-06-12] MEDS: Multivitamins/Minerals TAB PO SCH (08:01)
[2018-06-12] MEDS: Thiamine TAB* 100 MG TAB PO SCH (08:03)
[2018-06-12] MEDS: Nicotine PATCH 21 MG/24 HR* PATCH TRANSDERM SCH (08:31)
--- NOTE | 2018-06-12 09:24 | PN ---
Date of Service: 06/12/18 Critical Care Services: 48M with etoh dependence presents with DTs/Withdrawal seizure/hyponatremia 06/11: patient on precedex gtt. ct head neg for bleed. hyponatremia resolved. 06/12: patient spiked fever yesterday. CXR with new infiltate and urine weakly positive. remains confused and in withdrawal. Vital Signs: Temp Pulse Resp BP SpO2 FiO2 99.7 F 74 31 119/80 91 06/12/18 07:00 06/12/18 07:00 06/12/18 07:00 06/12/18 07:00 06/12/18 07:00 Physical Exam: Gen - frail, tremulous, poor hygeine HEENT - NCAT, EMOI Neck - no jvd, no thyromegaly CV - s1/s2, no murmur Pulm - cta, +ronchi Abd - soft, nt Ext - no c/c/e Neuro - tremulous, altered, not following commands, moving all extremities Fluid Balance (Past 24 Hours): I= O= Net Intake & Output 06/10/18 06/11/18 06/12/18 06/13/18 06:59 06:59 06:59 06:59 Intake Total 2378.7 1830.7 Output Total 1701 929 18 Balance 677.7 901.7 -18 Weight 58 kg 59.7 kg Intake: IV Fluids 2004 1456 Banana Bag 1033 D5W LR 1456 NS (0.9%) 972 IVPB 303 281 KCl 176 KCl and Mg 303 Magnesium Sulfate 105 Medicated IV 70.7 93.7 CC - Dexmedetomidine/ 70.7 93.7 Precedex Oral 0 Output: Urine 175 120 Powell 1526 [id number] 18 Other: # Voids 1 Labs: Laboratory Results - last 24 hr 06/11/18 06/11/18 06/12/18 14:58 15:06 04:49 Sodium 140 Potassium 3.4 L Chloride 106 Carbon Dioxide 24 Anion Gap 10 BUN 3 L Creatinine 0.57 L Est GFR ( Amer) 183.8 Est GFR (Non-Af Amer) 151.9 BUN/Creatinine Ratio 5.3 L Glucose 91 Lactic Acid 1.1 Calcium 8.6 Magnesium 1.8 L Urine Color Yellow Urine Appearance Clear Urine pH 6.0 Ur Specific Min[place] 1.011 Urine Protein Negative Urine Ketones 1+ A Urine Blood 3+ A Urine Nitrate Negative Urine Bilirubin Negative Urine Urobilinogen Negative Ur Leukocyte Esterase Negative Urine WBC (Auto) 1+(6-10/hpf) A Urine RBC (Auto) 3+(>10/hpf) A Urine Bacteria 1+ A Hyaline Casts Present A Urine Glucose Negative Studies: 06/10/18 CT Head IMPRESSION: #. No acute intracranial process evident. #. Involutional change and stigmata of chronic small vessel ischemic disease. 06/10/18 Left Shoulder Xray IMPRESSION:SUBACUTE TO CHRONIC APPEARING FRACTURE OF THE LATERAL CLAVICLE. OSTEOARTHRITIS. 06/11/18 CXR IMPRESSION: #. LEFT basilar airspace consolidation concerning for pneumonia given the clinical context. #. Stigmata of obstructive lung disease. Impression: 48M with etoh dependence presents with etoh withdrawal seizure / delirium tremens. Hyponatremia. Malnutrition. Pna. Plan: Neuro - DTs - calm but now not following commands - ct head negative - ativan per protocol - precedex gtt - fall/seizure precaution - SW/PT consults CV - - hemodynamically stable Pulm - pna - now hypoxic - cxr with pna - likely underlying copd - start nebulizers ID - PNA, UTI - new infiltrate on cxr and fever - aspiration vs HAP - weakly positive ua - start vanc/zosyn - blood and urine cultures sent - lactate normal - iv hydration GI / Nutrition - severe malnutrition - thiamine / folate / mvi - nutrition consult - ng tube and tube feeds if tolerated Renal - hyponatremia, hypokalemia - hyponatremia resolved with hydration - replete potassium - monitor bmp Heme - monitor cbc Endo - check tsh/cortisol - check fs Lines - piv PPx - gi/dvt Critical Care Time: 55 mins
[2018-06-12] MEDS ORDERED: Zosyn per Pharmacy* NOTE FOLLOW UP SCH (10:00)
[2018-06-12] MEDS ORDERED: Vancomycin(*) 0 MG in NS 0.9% 250 ML* 250 ML IVPB SCH (10:00)
[2018-06-12] MEDS ORDERED: Piperacillin/Tazobac ADVAN(*) 3.375 GM in NS 0.9% 100 ML* 100 ML IVPB ONE (10:00)
[2018-06-12] MEDS ORDERED: Vancomycin(*) 1,000 MG in NS 0.9% 250 ML* 250 ML IVPB ONE (10:30)
[2018-06-12] MEDS ORDERED: Acetaminophen SUPP* 650 MG SUPP PR ONE (11:00)
[2018-06-12] MEDS ORDERED: Albuterol/Ipratropium NEB.SOL* Albuterol 2.5 MG/Ipratropium 0.5 MG 3 ML INH PRN (11:00)
[2018-06-12] MEDS ORDERED: Acetaminophen SUPP* 650 MG SUPP ONE (11:20)
[2018-06-12] MEDS ORDERED: Magnesium Sulfate 1 GM IV* 1 GM/100 ML BAG IV ONE (12:00)
[2018-06-12] MEDS ORDERED: Vancomycin per Pharmacy* NOTE FOLLOW UP PRN (14:09)
[2018-06-12 14:51] LABS: Hematocrit 35 % (42-52); Hemoglobin 11.2 g/dl (14.0-18.0); Mean Corpuscular HGB Conc 33 g/dl (31-36); Mean Corpuscular Hemoglobin 31 pg (27-31); Mean Corpuscular Volume 94 fL (80-94); Mean Platelet Volume 9.8 um3 (7.4-10.4); Platelet Count 113 10^3/ul (150-450); Red Blood Count 3.65 10^6/ul (4.00-5.40); Red Cell Distribution Width 17 % (10.5-15)
[2018-06-12 15:02] LABS: EGFR Non-African American 148.9 (>60)
--- NOTE | 2018-06-12 15:02 | PN ---
PROGRESS NOTE: DATE OF SERVICE: 06/12/18 SUBJECTIVE: Tomás Cadet was admitted in the setting of seizures and alcohol withdrawal. He continues on the [facility] protocol. This morning the patient did not known where he was or why he was here. There has been no new events. PHYSICAL EXAMINATION: On examination, most recent temperature was 99.7 degrees Fahrenheit. His pulse was 75 and regular and respiratory rate was 35, saturation was 91%, blood pressure was 119/80. He had a regular cardiac rhythm , his lungs were clear to auscultation at the bases. However, there was some crackling noted in upper respiratory region near the trachea.. There was no peripheral edema. He had peripheral pulses that were intact. There were bruises and multiple distributions at multiple ages. He kept his eyes closed despite requesting opening. After opening his eyes, he then did respond to commands to look left and right. His facial expression was symmetric. He was able to move his arms and legs antigravity with some resistance and move both proximally and distally. He was sleepy and had decreased attention and inability to sustain attention to participate further in coordination or sensory exam, or gait exam. LABORATORY DATA: Today, his lactic acid is 1.1. His urinalysis from yesterday showed 3+ blood, 1+ ketone, 1+ white blood cell with urine bacteria, but negative nitrite and esterase. He had electrolytes last night, which showed a magnesium still low, but improved at 1.8. His sodium was within normal limits and his potassium is low at 3.4. MAR: was reviewed. IMPRESSION: A 48-year-old gentleman with history of significant alcohol use who was admitted with seizure in the setting of cutting back on drinking, making high suspicion for alcohol withdrawal seizure. He is going through the [facility] protocol. He is sedated, but has had no further events. He is being managed in the ICU. Education was given to the patient regarding what had happened. Given his decreased attention, further education will be needed in the future. At this point, I will sign off the case given no new active neurologic issue. ICU attending should feel free to call back the neurology service if further input is needed. Case was discussed with ICU attending who agreed with course and action. Over 30 minutes were spent in the patient care and all questions were answered. [id number]/[facility] #: [id number] [facility]
[2018-06-12 15:13] LABS: ABS Basophils 0.1 10^3/ul (0-0.2); ABS Eosinophils 0.1 10^3/ul (0-0.6); ABS Lymphocytes 0.8 10^3/ul (1.0-4.8); ABS Monocytes 0.7 10^3/ul (0-0.8); ABS Neutrophils 5.3 10^3/ul (1.5-7.7)
[2018-06-12 15:25] LABS: ABS Basophils 0.2 10^3/ul (0-0.2); ABS Neutrophils 4.2 10^3/ul (1.5-7.7); Monocytes % 8 % (0-7)
[2018-06-12] MEDS: ZOSYN 3.375 GM Q8H per EXTENDED INFUSION IVPB SCH ×4 (15:55→23:43)
[2018-06-12] MEDS: Vancomycin(*) 1,000 MG in NS 0.9% 250 ML* 250 ML IVPB SCH ×2 (18:10→23:43)
[2018-06-13] MEDS: ZOSYN 3.375 GM Q8H per EXTENDED INFUSION IVPB SCH ×6 (02:00→22:10)
[2018-06-13] MEDS: Nicotine Patch Removal NOTE FOLLOW UP SCH (05:11)
--- NOTE | 2018-06-13 08:25 | PN ---
Date of Service: 06/13/18 Critical Care Services: 48M with etoh dependence presents with DTs/Withdrawal seizure/hyponatremia 06/11: patient on precedex gtt. ct head neg for bleed. hyponatremia resolved. 06/12: patient spiked fever yesterday. CXR with new infiltate and urine weakly positive. remains confused and in withdrawal. 06/13: Mental status improved. Hypoxia improving. Vital Signs: Temp Pulse Resp BP SpO2 FiO2 99.1 F 78 21 123/74 93 60 06/13/18 07:30 06/13/18 07:30 06/13/18 07:30 06/13/18 07:30 06/13/18 07:30 06/13 03:32 Physical Exam: Gen - frail, poor hygeine HEENT - NCAT, EMOI Neck - no jvd, no thyromegaly CV - s1/s2, no murmur Pulm - cta, +ronchi Abd - soft, nt Ext - no c/c/e Neuro - improved mentation, following commands Fluid Balance (Past 24 Hours): I= O= Net Intake & Output 06/11/18 06/12/18 06/13/18 06/14/18 06:59 06:59 06:59 06:59 Intake Total 2378.7 1830.7 3525 Output Total 1701 929 538 Balance 677.7 901.7 2987 Weight 58 kg 59.7 kg 61.2 kg Intake: IV Fluids 2004 1456 3387 Banana Bag 1033 D5W LR 1456 1954 LR 1000 NS (0.9%) 972 433 IVPB 303 281 KCl 176 KCl and Mg 303 Magnesium Sulfate 105 Medicated IV 70.7 93.7 138 CC - Dexmedetomidine/ 70.7 93.7 138 Precedex Oral 0 0 Output: Urine 175 120 [place] 1526 809 538 Other: # Voids 1 Labs: Laboratory Results - last 24 hr 06/12/18 06/12/18 04:49 04:49 WBC 7.0 RBC 3.65 L Hgb 11.2 L Hct 35 L MCV 94 MCH 31 MCHC 33 RDW 17 H Plt Count 113 L MPV 9.8 Neut % (Auto) Not Reportable Lymph % (Auto) Not Reportable [place] % (Auto) Not Reportable Eos % (Auto) Not Reportable Baso % (Auto) Not Reportable Absolute Neuts (auto) 5.3 Absolute Lymphs (auto) 0.8 L Absolute Monos (auto) 0.7 Absolute Eos (auto) 0.1 Absolute Basos (auto) 0.1 Absolute Nucleated RBC Not Reportable Immature Gran % 15 H Neutrophils % 60 Band Neutrophils % 15 H Lymphocytes % 11 L Reactive Lymphs % 2 Monocytes % 8 H Eosinophils % 1 Basophils % 3 H Nucleated RBC % Not Reportable Abs Neuts (Manual) 4.2 Abs Lymphs (Manual) 0.8 L Abs Monocytes (Manual) 0.6 Absolute Eos (Manual) 0.1 Abs Basophils (Manual) 0.2 Normal RBC Morphology Normal Sodium 140 Potassium 3.5 Chloride 108 Carbon Dioxide 25 Anion Gap 7 BUN 4 L Creatinine 0.58 L Est GFR ( Amer) 180.2 Est GFR (Non-Af Amer) 148.9 BUN/Creatinine Ratio 6.9 L Glucose 121 H Calcium 8.3 L Magnesium 1.8 L Total Bilirubin 1.30 H AST 85 H ALT 41 Alkaline Phosphatase 108 H Total Protein 5.8 L Albumin 2.8 L Globulin 3.0 Albumin/Globulin Ratio 0.9 L Studies: 06/10/18 CT Head IMPRESSION: #. No acute intracranial process evident. #. Involutional change and stigmata of chronic small vessel ischemic disease. 06/10/18 Left Shoulder Xray IMPRESSION:SUBACUTE TO CHRONIC APPEARING FRACTURE OF THE LATERAL CLAVICLE. OSTEOARTHRITIS. 06/11/18 CXR IMPRESSION: #. LEFT basilar airspace consolidation concerning for pneumonia given the clinical context. #. Stigmata of obstructive lung disease. Impression: 48M with etoh dependence presents with etoh withdrawal seizure / delirium tremens. Hyponatremia. Malnutrition. Pna. Plan: Neuro - DTs - improved mental status - ct head negative - ativan per protocol - wean precedex gtt - fall/seizure precaution - SW/PT consults CV - - hemodynamically stable Pulm - pna - hypoxia improving - cxr with pna - likely underlying copd - start nebulizers ID - PNA, UTI - new infiltrate on cxr and fever - aspiration vs HAP - weakly positive ua - start vanc/zosyn (day 2 of 7) - blood and urine cultures sent - lactate normal - iv hydration GI / Nutrition - malnutrition - thiamine / folate / mvi - nutrition consult - ng tube and tube feeds if tolerated - swallow eval Renal - hyponatremia, hypokalemia - hyponatremia resolved with hydration - replete potassium - monitor bmp Heme - monitor cbc Endo - check tsh/cortisol - check fs Lines - piv PPx - gi/dvt Critical Care Time: 45 mins
[2018-06-13] MEDS: LORazepam INJ* 2 MG/ML 1 ML VIAL IV SCH (08:46)
[2018-06-13] MEDS: Dexmedetomidine* 400 MCG in NS 0.9% 100 ML* 96 ML IVPB SCH ×3 (08:46→21:57)
[2018-06-13] MEDS: Nicotine PATCH 21 MG/24 HR* PATCH TRANSDERM SCH (08:47)
[2018-06-13] MEDS: Thiamine TAB* 100 MG TAB PO SCH (08:47)
[2018-06-13] MEDS: Multivitamins/Minerals TAB PO SCH (08:47)
[2018-06-13] MEDS: Folic Acid TAB* 1 MG PO SCH (08:47)
[2018-06-13 09:03] LABS: Hematocrit 32 % (42-52); Hemoglobin 10.3 g/dl (14.0-18.0); Mean Corpuscular HGB Conc 33 g/dl (31-36); Mean Corpuscular Hemoglobin 31 pg (27-31); Mean Corpuscular Volume 95 fL (80-94); Mean Platelet Volume 9.5 um3 (7.4-10.4); Platelet Count 111 10^3/ul (150-450); Red Blood Count 3.32 10^6/ul (4.00-5.40); Red Cell Distribution Width 17 % (10.5-15); White Blood Count 6.2 10^3/ul (3.5-10.8)
[2018-06-13 09:20] LABS: EGFR Non-African American 71.1 (>60)
[2018-06-13 09:46] LABS: Vancomycin Trough 15.1 mcg/mL
[2018-06-13] MEDS: D5LR 1000 ML BAG* 1,000 ML IV SCH ×2 (10:04→19:29)
[2018-06-13 10:13] LABS: ABS Basophils 0 10^3/ul (0-0.2); ABS Eosinophils 0.1 10^3/ul (0-0.6); ABS Lymphocytes 0.6 10^3/ul (1.0-4.8); ABS Neutrophils 4.5 10^3/ul (1.5-7.7); ABS Nucleated RBC 0 10^3/ul; Eosinophil % 1.1 % (0-6); Lymphocyte % 9.2 % (25-47); Nucleated Red Blood Cells % 0.1
[2018-06-13] MEDS: Vancomycin(*) 1,000 MG in NS 0.9% 250 ML* 250 ML IVPB SCH ×2 (10:15→16:23)
--- NOTE | 2018-06-13 13:09 | PN ---
NEUROLOGY PROGRESS REPORT: DATE OF SERVICE: PRIMARY CARE PROVIDER: Dr. Jamey Garcia. Neurology is following for the evaluation of seizures. CHIEF COMPLAINT: Increasing cough. BRIEF HISTORY: The patient is a 48-year-old man with a history of alcohol and tobacco dependency, who presented with delirium tremens and withdrawal seizures and hyponatremia on 06/10/18. He has been in the ICU for close monitoring. SUBJECTIVE: The patient is slowly waking up and his mental status is improving. He is more awake and cooperative on examination today. Last night, the patient was extremely obtunded and was not answering questions appropriately. He had spiked a fever yesterday as well and chest x-ray is showing a new infiltrate. The patient has been started on antibiotics, Zosyn, for a presumed pneumonia. He is also taking vancomycin. He is on thiamine 100 mg daily. REVIEW OF SYSTEMS: Positive for cough and shortness of breath. He is on nasal cannula 4 L. He denied any headaches, visual disturbance, focal weakness, or paresthesias. He denied any chest pain or palpitation. MEDICATIONS: 1. Albuterol 2.5 mg/ipratropium 0.5 mg 1 every 4 hours as needed for shortness of breath. 2. Folic acid. 3. Lorazepam 2-[address] [facility] protocol; lorazepam 0.5 mg IV every 12 hours scheduled. 4. Multivitamins. 5. Nicotine. 6. Zosyn. 7. Vancomycin 1000 mg in sodium chloride 250 mL every 8 hours. 8. Thiamine 100 mg p.o. daily. ALLERGIES: No known drug allergies. PHYSICAL EXAMINATION: Vital Signs: Temperature 99.3, heart rate 71, respiratory rate of 23, oxygen saturation 98%, and blood pressure 138/86 mmHg. General: Frail, ill-appearing, thin man in no acute distress. He is alert and cooperative. He has poor hygiene. Normocephalic and atraumatic. Conjunctivae/ corneas are clear without any scleral icterus. There is wheezing on the anterior chest wall, mostly in the bibasilar region. He is on nasal cannula. Regular rhythm with normal S1 and S2. Normal radial pulses. Extremities: Normal range of motion with no cyanosis. Skin: No skin lesions or lacerations. Psych: Affect is broad, some mild psychomotor slowing. Neurological Examination: The patient is awake, alert, oriented to person, place, and time. He told me the date was 06/14/18. Speech and language are slightly slow, but he able to name, repeat, and comprehend moderate tasks. Cranial Nerves: Pupils are equal, round, and reactive to light. Extraocular muscles are intact. Tongue is symmetric with no atrophy or fasciculation. Motor: No abnormal movements. No pronator drift. Strength appears to be symmetric bilaterally in the upper and lower extremities. Reflexes: 1+ throughout with downgoing plantar response bilaterally. Sensation is intact to light touch throughout. Coordination: Normal [id number] but slow alternative movements bilaterally. Gait was not assessed as the patient is oxygen dependent at this point. LABORATORY DATA: WBC 6.2, hemoglobin of 10.3, platelets 111. Sodium 140, potassium 3.5, creatinine function of 0.58, lactic acid 1.1. ASSESSMENT AND RECOMMENDATIONS: Mr. Tomás Cadet is a 48-year-old man, who is dependent on tobacco and alcohol use, who presented with alcohol withdrawal seizures and delirium tremens. He is slowly improving. Alcohol withdrawal seizures - there is no indication for antiseizure medications at this point. Unfortunately, the patient is requesting cigarette and a drink despite counseling. He had an EEG done on 06/11/18 that did not show any epileptiform abnormalities. He has no evidence of any intracranial mass or bleeding on CT head without contrast. I recommend slowly weaning him off the benzodiazepine. Defer treatment for pneumonia to the primary team. He will need physical therapy services. At this point, I will sign off but if there are any new neurological issues, please feel free to contact me. TIME SPENT: A total of 25 minutes including 50 % was spent directly reviewing the medical chart, obtaining history, examining the patient, and discussing the treatment plan with the primary team. The patient's prognosis is dependent on his cessation of alcohol. [id number]/[facility] #: [id number] [facility] HEALTHRafael
[2018-06-13 13:28] LABS: EGFR Non-African American 51.7 (>60)
--- NOTE | 2018-06-13 15:21 | RAD ---
INDICATION: Evaluate for renal obstruction COMPARISON: None TECHNIQUE: Longitudinal and transverse scans of the kidneys were obtained. FINDINGS: Kidneys: The kidneys are normal in size and echogenicity. No renal masses, calculi, or hydronephrosis is seen. The right kidney measures 12.6 x 5.0 x 5.5 cm and the left kidney 13.1 x 5.9 x 5.4 cm. Other: There is free fluid in both paracolic gutters and in the gallbladder fossa. There is a small amount of perinephric fluid bilaterally. IMPRESSION: NO EVIDENCE OF HYDRONEPHROSIS OR OBSTRUCTION. SMALL AMOUNT OF PERITONEAL FREE FLUID AND PERINEPHRIC FLUID.
[2018-06-13] MEDS: LORazepam INJ* 2 MG/ML 1 ML VIAL IV PUSH SCH ×2 (15:33→20:24)
[2018-06-13] MEDS ORDERED: Mouth Piece, Nicotine* 1 EACH CARTRIDGE INH ONE (17:00)
[2018-06-13] MEDS: Nicotine Inhaler* 10 MG AMP INH PRN (17:05)
[2018-06-14] MEDS: LORazepam INJ* 2 MG/ML 1 ML VIAL IV PUSH SCH ×6 (00:08→20:20)
[2018-06-14] MEDS: Vancomycin(*) 1,000 MG in NS 0.9% 250 ML* 250 ML IVPB SCH ×2 (00:08→08:02)
[2018-06-14] MEDS: Nicotine Inhaler* 10 MG AMP INH PRN ×4 (00:08→12:00)
[2018-06-14] MEDS: Dexmedetomidine* 400 MCG in NS 0.9% 100 ML* 96 ML IVPB SCH ×3 (00:16→10:36)
[2018-06-14] MEDS ORDERED: Mouth Piece, Nicotine* 1 EACH CARTRIDGE ONE ×2 (02:22→07:51)
[2018-06-14] MEDS: D5LR 1000 ML BAG* 1,000 ML IV SCH ×2 (03:49→19:36)
[2018-06-14 05:01] LABS: Hematocrit 31 % (42-52); Hemoglobin 10.3 g/dl (14.0-18.0); Mean Corpuscular HGB Conc 34 g/dl (31-36); Mean Corpuscular Hemoglobin 31 pg (27-31); Mean Corpuscular Volume 93 fL (80-94); Platelet Count 131 10^3/ul (150-450); Red Blood Count 3.28 10^6/ul (4.00-5.40); Red Cell Distribution Width 17 % (10.5-15); White Blood Count 7.7 10^3/ul (3.5-10.8)
[2018-06-14 05:17] LABS: EGFR Non-African American 24.6 (>60)
[2018-06-14] MEDS: ZOSYN 3.375 GM Q8H per EXTENDED INFUSION IVPB SCH ×2 (05:31)
[2018-06-14] MEDS: Nicotine Patch Removal NOTE FOLLOW UP SCH (05:31)
[2018-06-14 05:37] LABS: ABS Basophils 0 10^3/ul (0-0.2); ABS Eosinophils 0.2 10^3/ul (0-0.6); ABS Lymphocytes 0.7 10^3/ul (1.0-4.8); ABS Monocytes 1.3 10^3/ul (0-0.8); ABS Neutrophils 5.4 10^3/ul (1.5-7.7); ABS Nucleated RBC 0 10^3/ul; Lymphocyte % 9.7 % (25-47); Nucleated Red Blood Cells % 0
[2018-06-14] MEDS: Nicotine PATCH 21 MG/24 HR* PATCH TRANSDERM SCH (08:02)
[2018-06-14] MEDS: Folic Acid TAB* 1 MG PO SCH (08:10)
[2018-06-14] MEDS: Multivitamins/Minerals TAB PO SCH (08:11)
[2018-06-14] MEDS: Thiamine TAB* 100 MG TAB PO SCH (08:11)
[2018-06-14] MEDS ORDERED: KCL 10 MEQ/50 ML IVPREMIX* 10 MEQ/50 ML BAG IV ONE (09:04)
--- NOTE | 2018-06-14 09:08 | PN ---
Date of Service: 06/14/18 Critical Care Services: 48M with etoh dependence presents with DTs/Withdrawal seizure/hyponatremia 06/11: patient on precedex gtt. ct head neg for bleed. hyponatremia resolved. 06/12: patient spiked fever yesterday. CXR with new infiltate and urine weakly positive. remains confused and in withdrawal. 06/13: Mental status improved. Hypoxia improving. 06/14: Hypoxia continues to improve, however, now having worsening renal failure. Vanco/zosyn stopped and to be re-adjusted by pharmacy. Renal sono negative. Vital Signs: Temp Pulse Resp BP SpO2 FiO2 98.2 F 64 26 140/95 97 35 06/14/18 08:00 06/14/18 08:00 06/14/18 08:00 06/14/18 08:00 06/14/18 08:00 06/13 08:26 Physical Exam: Gen - frail, poor hygeine HEENT - NCAT, EMOI Neck - no jvd, no thyromegaly CV - s1/s2, no murmur Pulm - cta, +ronchi Abd - soft, nt Ext - no c/c/e Neuro - improved mentation, following commands Fluid Balance (Past 24 Hours): I= O= Net Intake & Output 06/12/18 06/13/18 06/14/18 06/15/18 06:59 06:59 06:59 06:59 Intake Total 1830.7 3525 5300 Output Total 929 538 147 20 Balance 901.7 2987 5153 -20 Weight 59.7 kg 61.2 kg 66.2 kg Intake: IV Fluids 1456 3387 3549 ABX - ZOSYN 60 D5W LR 1456 1954 2490 LR 1000 Lactated Ringers 999 NS (0.9%) 433 IVPB 281 1111 ABX - VANCOMYCIN 796 ABX - ZOSYN 315 KCl 176 Magnesium Sulfate 105 Medicated IV 93.7 138 CC - Dexmedetomidine/ 93.7 138 Precedex Oral 0 0 640 Output: Urine 120 [place] 809 538 147 20 Other: Date of Last Bowel 06/14/18 Movement # Bowel Movements 1 Estimated Stool Amount Medium Labs: Laboratory Results - last 24 hr 06/13/18 06/13/18 06/13/18 08:36 08:36 09:50 WBC 6.2 RBC 3.32 L Hgb 10.3 L Hct 32 L MCV 95 H MCH 31 MCHC 33 RDW 17 H Plt Count 111 L MPV 9.5 Neut % (Auto) 72.9 Lymph % (Auto) 9.2 L [place] % (Auto) 16.1 H Eos % (Auto) 1.1 Baso % (Auto) 0.7 Absolute Neuts (auto) 4.5 Absolute Lymphs (auto) 0.6 L Absolute Monos (auto) 1.0 H Absolute Eos (auto) 0.1 Absolute Basos (auto) 0 Absolute Nucleated RBC 0 Nucleated RBC % 0.1 Sodium 140 Potassium 3.5 Chloride 110 Carbon Dioxide 23 Anion Gap 7 BUN 11 Creatinine 1.10 Est GFR ( Amer) 86.1 Est GFR (Non-Af Amer) 71.1 BUN/Creatinine Ratio 10.0 Glucose 530 H* POC Glucose (mg/dL) Glucose Meter Confirm 136 H Serum Osmolality Calcium 7.8 L Phosphorus Magnesium Total Creatine Kinase Urine Osmolality Ur Random Creatinine Ur Random Sodium Vancomycin Trough 15.1 06/13/18 06/13/18 06/13/18 10:01 12:50 18:20 WBC RBC Hgb Hct MCV MCH MCHC RDW Plt Count MPV Neut % (Auto) Lymph % (Auto) [place] % (Auto) Eos % (Auto) Baso % (Auto) Absolute Neuts (auto) Absolute Lymphs (auto) Absolute Monos (auto) Absolute Eos (auto) Absolute Basos (auto) Absolute Nucleated RBC Nucleated RBC % Sodium 141 Potassium 3.4 L Chloride 110 Carbon Dioxide 23 Anion Gap 8 BUN 14 Creatinine 1.45 H Est GFR ( Amer) 62.6 Est GFR (Non-Af Amer) 51.7 BUN/Creatinine Ratio 9.7 Glucose 128 H POC Glucose (mg/dL) 147 H Glucose Meter Confirm Serum Osmolality Calcium 8.3 L Phosphorus 2.1 L Magnesium 1.7 L Total Creatine Kinase 99 Urine Osmolality 266 Ur Random Creatinine Ur Random Sodium Vancomycin Trough 06/13/18 06/14/18 06/14/18 18:20 04:45 04:45 WBC 7.7 RBC 3.28 L Hgb 10.3 L Hct 31 L MCV 93 MCH 31 MCHC 34 RDW 17 H Plt Count 131 L MPV 9.0 Neut % (Auto) 70.4 Lymph % (Auto) 9.7 L [place] % (Auto) 17.3 H Eos % (Auto) 2.0 Baso % (Auto) 0.6 Absolute Neuts (auto) 5.4 Absolute Lymphs (auto) 0.7 L Absolute Monos (auto) 1.3 H Absolute Eos (auto) 0.2 Absolute Basos (auto) 0 Absolute Nucleated RBC 0 Nucleated RBC % 0 Sodium 141 Potassium 3.2 L Chloride 111 Carbon Dioxide 22 Anion Gap 8 BUN 20 Creatinine 2.76 H Est GFR ( Amer) 29.8 Est GFR (Non-Af Amer) 24.6 BUN/Creatinine Ratio 7.2 L Glucose 107 H POC Glucose (mg/dL) Glucose Meter Confirm Serum Osmolality Calcium 8.2 L Phosphorus 1.4 L Magnesium 1.6 L Total Creatine Kinase Urine Osmolality Ur Random Creatinine 90.35 Ur Random Sodium 62 Vancomycin Trough 06/14/18 04:45 WBC RBC Hgb Hct MCV MCH MCHC RDW Plt Count MPV Neut % (Auto) Lymph % (Auto) [place] % (Auto) Eos % (Auto) Baso % (Auto) Absolute Neuts (auto) Absolute Lymphs (auto) Absolute Monos (auto) Absolute Eos (auto) Absolute Basos (auto) Absolute Nucleated RBC Nucleated RBC % Sodium Potassium Chloride Carbon Dioxide Anion Gap BUN Creatinine Est GFR ( Amer) Est GFR (Non-Af Amer) BUN/Creatinine Ratio Glucose POC Glucose (mg/dL) Glucose Meter Confirm Serum Osmolality 292 Calcium Phosphorus Magnesium Total Creatine Kinase Urine Osmolality Ur Random Creatinine Ur Random Sodium Vancomycin Trough Studies: 06/10/18 CT Head IMPRESSION: #. No acute intracranial process evident. #. Involutional change and stigmata of chronic small vessel ischemic disease. 06/10/18 Left Shoulder Xray IMPRESSION:SUBACUTE TO CHRONIC APPEARING FRACTURE OF THE LATERAL CLAVICLE. OSTEOARTHRITIS. 06/11/18 CXR IMPRESSION: #. LEFT basilar airspace consolidation concerning for pneumonia given the clinical context. #. Stigmata of obstructive lung disease. 06/13/18 Renal Sono IMPRESSION: NO EVIDENCE OF HYDRONEPHROSIS OR OBSTRUCTION. SMALL AMOUNT OF PERITONEAL FREE FLUID AND PERINEPHRIC FLUID Impression: 48M with etoh dependence presents with etoh withdrawal seizure / delirium tremens. Hyponatremia. Malnutrition. Pna. Now in renal failure. Plan: Neuro - DTs - mental status waxes and wanes - ct head negative - ativan per protocol - wean precedex gtt - fall/seizure precaution - SW/PT consults CV - - hemodynamically stable Pulm - pna - hypoxia improving - cxr with pna - likely underlying copd - nebulizer prn ID - PNA, UTI - new infiltrate on cxr and fever - aspiration vs HAP - weakly positive ua - zosyn (day 3 of 7) - blood and urine cultures sent - lactate normal - iv hydration GI / Nutrition - malnutrition - thiamine / folate / mvi - nutrition consult - ng tube and tube feeds if tolerated - swallow eval Renal - hyponatremia, hypokalemia, acute renal failure - hyponatremia resolved with hydration - replete potassium, mag, phos - renal sono negative - likely atn from sepsis - renal consult today Heme - monitor cbc Endo - - check fs Lines - piv PPx - gi/dvt Critical Care Time: 55 minutes
[2018-06-14] MEDS ORDERED: Potassium Phosphate IV* 15 MMOLE in NS 0.9% 250 ML* 250 ML IVPB ONE (10:00)
[2018-06-14] MEDS ORDERED: PHENobarbital SODIUM(*) 65 MG/ML VIAL IVPB ONE (11:11)
[2018-06-14] MEDS ORDERED: PHENobarbital SODIUM(*) 65 MG/ML VIAL IV ONE (11:11)
[2018-06-14] MEDS ORDERED: PHENOBARBITAL IV ONE (11:42)
[2018-06-14] MEDS ORDERED: NS 0.9% IV ONE (11:42)
[2018-06-14] MEDS: ZOSYN 3.375 GM Q12H per EXTENDED INFUSION IVPB SCH ×2 (17:32)
[2018-06-15] MEDS: Dexmedetomidine* 400 MCG in NS 0.9% 100 ML* 96 ML IVPB SCH ×4 (00:16→13:13)
[2018-06-15] MEDS: D5LR 1000 ML BAG* 1,000 ML IV SCH ×2 (02:10→08:48)
[2018-06-15 05:49] LABS: Hematocrit 30 % (42-52); Hemoglobin 9.9 g/dl (14.0-18.0); Mean Corpuscular HGB Conc 33 g/dl (31-36); Mean Corpuscular Hemoglobin 31 pg (27-31); Mean Corpuscular Volume 93 fL (80-94); Mean Platelet Volume 8.8 um3 (7.4-10.4); Platelet Count 132 10^3/ul (150-450); Red Blood Count 3.18 10^6/ul (4.00-5.40); Red Cell Distribution Width 17 % (10.5-15); White Blood Count 7.9 10^3/ul (3.5-10.8)
[2018-06-15] MEDS: ZOSYN 3.375 GM Q12H per EXTENDED INFUSION IVPB SCH ×2 (06:05)
[2018-06-15] MEDS: Nicotine Patch Removal NOTE FOLLOW UP SCH (06:08)
[2018-06-15 06:31] LABS: EGFR Non-African American 17.2 (>60)
[2018-06-15 06:59] LABS: ABS Basophils 0 10^3/ul (0-0.2); ABS Neutrophils 4.3 10^3/ul (1.5-7.7); ABS Neutrophils 5.4 10^3/ul (1.5-7.7); Monocytes % 8 % (0-7)
[2018-06-15] MEDS: LORazepam INJ* 2 MG/ML 1 ML VIAL IV PUSH SCH (07:29)
[2018-06-15] MEDS: Nicotine PATCH 21 MG/24 HR* PATCH TRANSDERM SCH (08:52)
[2018-06-15] MEDS ORDERED: NS 0.9% 100 ML* 100 ML ONE (09:51)
[2018-06-15] MEDS ORDERED: Magnesium Sulfate IV 2 GM in NS 100 ML (Pharmacy Admixed) IV ONE (10:00)
[2018-06-15] MEDS: KCL 20 MEQ/100 ML IVPREMIX* 20 MEQ/100 ML BAG IV SCH ×3 (12:28→16:57)
[2018-06-15] MEDS ORDERED: D5LR 1000 ML BAG* 1,000 ML IV SCH (13:40)
--- NOTE | 2018-06-15 13:40 | PN ---
Date of Service: 06/15/18 Critical Care Services: Patient with probable ETOH withdrawal and progressive renal failure of unclear etiology. Vital Signs: Temp Pulse Resp BP SpO2 FiO2 97.9 F 48 25 128/85 94 35 06/15/18 11:15 06/15/18 11:15 06/15/18 11:15 06/15/18 11:15 06/15/18 11:15 06/14 16:00 Physical Exam: Gen:Disoriented but not agitated Lungs: Clear Abdomen:Not distended Extremities: No trmors or asterixis Fluid Balance (Past 24 Hours): 06/13/18 06/14/18 06/15/18 06:59 06:59 06:59 Intake Total 3525 5300 4211.5 Output Total 538 147 194 Balance 2987 5153 4017.5 Weight 134 lb 145 lb 155 lb Intake: IV Fluids 3387 3549 3724.9 ABX - ZOSYN 60 D5W LR 1954 2490 3409 LR 1000 Lactated Ringers 999 NS (0.9%) 433 92.9 Potassium Phosphate 223 IVPB 1111 366 ABX - VANCOMYCIN 796 256 ABX - ZOSYN 315 110 Medicated IV 138 120.6 CC - Dexmedetomidine/ 138 120.6 Precedex Oral 0 640 Output: [place] 538 147 194 Other: Date of Last Bowel 06/14/18 Movement # Bowel Movements 1 Estimated Stool Amount Medium NOTE: Is 12 liters positive over past 3 days!!! Labs: 06/14/18 06/15/18 06/15/18 11:00 05:30 05:30 WBC 7.9 RBC 3.18 L Hgb 9.9 L Hct 30 L MCV 93 MCH 31 MCHC 33 RDW 17 H Plt Count 132 L Sodium 142 Potassium 3.1 L Chloride 113 H Carbon Dioxide 20 L Anion Gap 9 BUN 25 H Creatinine 3.76 H Est GFR ( Amer) 20.8 Est GFR (Non-Af Amer) 17.2 BUN/Creatinine Ratio 6.6 L Glucose 118 H Calcium 8.1 L Phosphorus 2.6 Magnesium 1.5 L Studies: None today Nutrition: oral diet Impression: 1. ETOH withdrawal improving 2. Progressive renal insufficiency despite lots of fluids (12 L positive last 3 days) - no apparent etiology Plan: 1. Cut back on IV fluids. 2. Contnue sedation PRN for withdrawal 3. I will speak with renal service Critical Care Time: 30 minutes
[2018-06-15] MEDS: Thiamine TAB* 100 MG TAB PO SCH (18:01)
[2018-06-15] MEDS: Multivitamins/Minerals TAB PO SCH (18:01)
[2018-06-15] MEDS: Folic Acid TAB* 1 MG PO SCH (18:02)
[2018-06-16 05:52] LABS: EGFR Non-African American 14.5 (>60)
[2018-06-16] MEDS: Nicotine Patch Removal NOTE FOLLOW UP SCH (06:35)
[2018-06-16] MEDS: Folic Acid TAB* 1 MG PO SCH (10:24)
[2018-06-16] MEDS: Thiamine TAB* 100 MG TAB PO SCH (10:24)
--- NOTE | 2018-06-16 12:16 | PN ---
Date of Service: 06/16/18 Critical Care Services: Had an uneventful evening. No specific complaints this AM Vital Signs: Temp Pulse Resp BP SpO2 FiO2 99.5 F 92 25 152/95 94 35 Physical Exam: Gen:Alert, oriented, comfortable Lungs: clear Extremities: No tremors Neuro: No asterixis Fluid Balance (Past 24 Hours): 06/14/18 06/15/18 06/16/18 06:59 06:59 06:59 Intake Total 5300 4211.5 2909.3 Output Total 147 194 385 Balance 5153 4017.5 2524.3 Weight 145 lb 15.136 oz 155 lb 3.287 oz 163 lb 5.8 oz Intake: IV Fluids 3549 3724.9 1659 ABX - ZOSYN 60 D5W LR 2490 3409 1349 Lactated Ringers 999 NS (0.9%) 92.9 310 Potassium Phosphate 223 IVPB 1111 366 315 ABX - VANCOMYCIN 796 256 ABX - ZOSYN 315 110 KCl 315 Medicated IV 120.6 95.3 CC - Dexmedetomidine/ 120.6 95.3 Precedex Oral 640 840 Output: [place] 147 194 385 Other: Date of Last Bowel 06/14/18 06/16/18 Movement # Bowel Movements 1 1 Estimated Stool Amount Medium Medium Labs: 06/16/18 05:20 Sodium 138 Potassium 3.7 Chloride 111 Carbon Dioxide 20 L Anion Gap 7 BUN 27 H Creatinine 4.37 H Est GFR ( Amer) 17.5 Est GFR (Non-Af Amer) 14.5 BUN/Creatinine Ratio 6.2 L Glucose 78 Calcium 8.4 L Studies: Renal ultrasound: not signs of obstruction Nutrition: Oral diet Impression: ETOH withdrawal is being controlled - The major problem now is progressive acute renal failure of unclear etiology. There are no signs of uremia, but dialysis is scheduled to pre-empt problems with uremia. Plan: Patient is scheduled for dialysis tomorrow. He has been informed about this, and is speaking with family members about the decision to proceed with dialysis. Critical Care Time: 35 minutes .
[2018-06-16] MEDS ORDERED: Dexmedetomidine* 400 MCG in NS 0.9% 100 ML* 96 ML IVPB SCH (12:30)
[2018-06-16] MEDS: LORazepam INJ* 2 MG/ML 1 ML VIAL IV PUSH SCH (22:01)
[2018-06-16] MEDS ORDERED: Calcium Carbonate CHEW TAB* 500 MG (TUMS) PO ONE (22:12)
[2018-06-16] MEDS: Ondansetron INJ* 2 MG/ML VIAL IV PRN (23:49)
[2018-06-17 07:01] LABS: EGFR Non-African American 12.7 (>60)
[2018-06-17] MEDS ORDERED: fentaNYL* 50 MCG/ML 2 ML VIAL (100 MCG VIAL) ONE (08:17)
[2018-06-17] MEDS ORDERED: fentaNYL* 50 MCG/ML 2 ML VIAL (100 MCG VIAL) IV SLOW PU ONE (09:30)
[2018-06-17] MEDS: Folic Acid TAB* 1 MG PO SCH (10:00)
[2018-06-17] MEDS: Thiamine TAB* 100 MG TAB PO SCH (10:00)
--- NOTE | 2018-06-17 10:10 | RAD ---
INDICATION: Central venous line placement. COMPARISON: Comparison is made with a prior study from June 11, 2018. TECHNIQUE: A portable view of the chest was obtained. FINDINGS: There is a central venous catheter entering from the right jugular approach. The catheter tip projects at the junction of the superior vena cava and right atrium. The heart is within normal limits in size. There is mild prominence of the interstitial markings in bilateral perihilar and basilar infiltrates and trace pleural effusions suggestive of pulmonary edema or pneumonia. No pneumothorax is seen. IMPRESSION: 1. STATUS POST CENTRAL VENOUS CATHETER PLACEMENT, NO EVIDENCE FOR PNEUMOTHORAX. 2. BILATERAL INFILTRATES SUGGESTIVE OF PULMONARY EDEMA OR PNEUMONIA.
[2018-06-17] MEDS ORDERED: Heparin DIALYSIS ONLY(*) 1,000 UNITS/ML VIAL DIALYSIS ONE (11:00)
--- NOTE | 2018-06-17 12:36 | CONS ---
AMENDED REPORT NOW INCLUDES DATE OF CONSULT - ESIGNED BEFORE ADJUSTMENT NEPHROLOGY CONSULTATION: DATE OF CONSULT: 06/17/18 HISTORY OF PRESENT ILLNESS: Mr. Cadet is a 48-year-old gentleman who [place] was [place] [employer] and had a seizure. He has a long history of alcoholism. There was a question of an alcohol withdrawal seizure at the time of admission, but according to friends who were with him, he had been drinking right up until the time of the seizure. Apparently, he fell striking his head. Apparently, he had no evidence of an infectious illness prior to this. He had been taking the occasional dose of ibuprofen. He has had some anorexia and nausea. He was on no medications at the time of admission. His only surgery had been on a finger. FAMILY HISTORY: Significant that his mother had breast cancer. REVIEW OF SYSTEMS: No visual disturbances, no hearing problems, no lightheadedness, no dizziness, no swallowing difficulties, no chest pain, no shortness of breath. No dysuria, frequency, or urgency. No edema. PHYSICAL EXAM: His blood pressure is 144/79 with a pulse of 63, respirations are 19. He is anicteric. The extraocular muscles are intact. Mucous membranes are moist. Chest is clear. The heart revealed a regular rhythm without murmurs. The abdomen is soft and nontender. There is no organomegaly. Bones, Joints, Extremities: No cyanosis, clubbing, or edema. Neurologic: He is slow to mentation and he arouses. LABORATORY DATA: A review of his laboratory studies reveals a white count of 7.9, hemoglobin of 9.9, hematocrit of 30, platelet count of 132,000. Sodium 138 , potassium 4.1, total CO2 of 19, chloride 111, BUN 30, creatinine 4.9 and has been going up at a rate of approximately 0.6 per day, magnesium is 1.5, bilirubin 1.0, albumin 2.8. His urinalysis was 1+ positive for ketones, 3+ for blood, 1+ for wbc's, 3+ for rbc's. His urine tox screen was presumptively positive for barbiturates and cannabinoids. DISCUSSION: Some of the synthetic marijuana problems can have acute renal failure as a consequence and we have seen some cases of bath salts recently related to this music festival. He did have some ibuprofen recently, but it is a little late at the present time to look for urinary eosinophils. Because of his fairly rapid rate of rise of creatinine, it was elected to go ahead and initiate dialysis at this point. I have discussed the case with Dr. Tucker. I discussed the risks of bleeding and infection and electrolyte shifts with the patient. [id number]/[facility] #: [id number] MTDD
--- NOTE | 2018-06-17 15:21 | PN ---
Date of Service: 01/18/18 Critical Care Services: Increasing agitation overnight (probably a sign of uremia) - dialysis catheter inserted this AM and first dialysis session today. Vital Signs: Temp Pulse Resp BP SpO2 FiO2 98.8 F 70 29 153/91 94 35 Physical Exam: Gen:Awake but disoriented to person HEENT: No JVD Lungs: Clear Abdomen:Not distended Extremities: No cyanosis or edema Fluid Balance (Past 24 Hours): 06/15/18 06/16/18 06/17/18 06:59 06:59 06:59 Intake Total 4211.5 2909.3 540.6 Output Total 194 385 800 Balance 4017.5 2524.3 -259.4 Weight 155 lb 3.287 oz 163 lb 5.8 oz 156 lb Intake: IV Fluids 3724.9 1659 10.6 D5W LR 3409 1349 NS (0.9%) 92.9 310 10.6 Potassium Phosphate 223 IVPB 366 315 ABX - VANCOMYCIN 256 ABX - ZOSYN 110 KCl 315 Medicated IV 120.6 95.3 CC - Dexmedetomidine/ 120.6 95.3 Precedex Oral 840 530 Output: [place] 194 385 800 Other: Date of Last Bowel 06/16/18 Movement # Bowel Movements 1 Estimated Stool Amount Medium Medium Labs: 06/16/18 06/17/18 16:11 06:22 Sodium 138 Potassium 4.1 Chloride 111 Carbon Dioxide 19 L Anion Gap 8 BUN 30 Creatinine 4.90 BUN/Creatinine Ratio 6.1 L Glucose 86 Calcium 8.7 Hepatitis B Antibody Not immune A Hep Bs Antigen Nonreactive Hep Bs Antibody, Quant < 3.10 Hepatitis C Antibody Nonreactive Studies: CXR: Dialysis catheter in appropriate position Nutrition: Oral diet Impression: Progressive renal failure with probable uremia. Plan: Continue dialysis runs, and treat patient symptomatically. Critical Care Time: 40 minutes
--- NOTE | 2018-06-17 23:48 | PRO ---
PROCEDURE NOTE: DATE OF PROCEDURE: 06/17/18 PROCEDURE: Insertion of a hemodialysis catheter. INDICATION: The patient is a 48-year-old male with progressive renal failure who has signs of uremia (nausea, vomiting, and confusion) and needs hemodialysis. DESCRIPTION OF PROCEDURE: A double lumen hemodialysis catheter was inserted into the right internal jugular vein under ultrasound guidance and was placed in the superior vena cava without incident. Position of the catheter was confirmed by a postprocedural x-ray. There were no apparent complications. [id number]/[facility] #: [id number] [facility]
[2018-06-18] MEDS: Dexmedetomidine* 400 MCG in NS 0.9% 100 ML* 96 ML IVPB SCH (03:31)
[2018-06-18] MEDS: Thiamine TAB* 100 MG TAB PO SCH (08:55)
[2018-06-18] MEDS: Folic Acid TAB* 1 MG PO SCH (08:55)
[2018-06-18] MEDS ORDERED: Calcium Gluconate INJ* 1 GM in NS 0.9% 50 ML* 50 ML IVPB ONE (09:03)
--- NOTE | 2018-06-18 13:52 | PN ---
Subjective Date of Service: 06/18/18 Interval History: Pt seen and examined. Meds and labs reviewed ROS: Denied CRUZ/dizziness, F/C, N/V, CP, SOB, increased cough, sputum production , abd pain, diarrhea, constipation, dysuria, myalgias, arthralgias, throat pain , and new skin lesions. The rest of the 14 point ROS are unremarkable. PHYSICAL EXAM: GEN APPEARANCE: Awake, not in acute distress HEENT: NC/AT, PERRLA, moist oral mucosa, (-) throat erythema NECK: Soft, supple, (-) cervical LAD, (-)JVD HEART: S1S2 WNL, RRR, No MRG CHEST: Slight wheezing and crackles, GAE, No /R/R ABD: Soft, ND/NT, NABS 4x Q EXT: No C/C/BLUE +1-2 edema SKIN: Warm to touch PSYCH: No active psychosis, hallucinations, depression, SI/HI Objective Active Medications: Albuterol/Ipratropium (Duoneb (Albuterol 2.5 Mg/Ipratropium 0.5 Mg)) 1 neb INH Q4H PRN PRN Reason: SOB/WHEEZING Folic Acid (Folvite Tab*) 1 mg PO DAILY [facility] Last Admin: 06/18/18 08:55 Dose: 1 mg Heparin Sodium (Porcine) (Heparin Flush Picc/Ml/Cvc(*)) 1 - 3 ml FLUSH 0600, 1800 [facility]; Protocol Last Admin: 06/18/18 06:33 Dose: 1 ml Heparin Sodium (Porcine) (Heparin Vial(*)) 5,000 units SUBCUT Q12HR [facility] Methylprednisolone Sodium Succinate (Solu-Medrol 40 Mg) 40 mg IV Q12H [facility] Ondansetron HCl (Zofran Inj*) 4 mg IV Q4H PRN PRN Reason: NAUSEA/VOMITING Last Admin: 06/16/18 23:49 Dose: 4 mg Thiamine HCl (Vitamin B-1 Tab*) 100 mg PO DAILY [facility] Last Admin: 06/18/18 08:55 Dose: 100 mg Vital Signs - 8 hr 06/18/18 08:00 Temperature 97.8 F Pulse Rate 62 Respiratory 16 Rate Blood Pressure 149/95 (mmHg) O2 Sat by Pulse 98 Oximetry Oxygen Devices in Use Now: Nasal Cannula Result Diagrams: 06/15/18 05:30 06/18/18 05:58 Microbiology and Other Data: Microbiology 06/11/18 15:03 Aerobic Blood Culture - Final Blood Venous No Growth Day 5 Anaerobic Blood Culture - Final No Growth Day 5 06/11/18 14:58 Aerobic Blood Culture - Final Blood Venous No Growth Day 5 Anaerobic Blood Culture - Final No Growth Day 5 06/16/18 10:53 Stool Gross Appearance - Final Stool C. difficile DNA Amplification - Final 027 Presumptive NEGATIVE Toxigenic C.diff NEGATIVE 06/10/18 20:45 Aerobic Blood Culture - Final Blood Venous No Growth Day 5 Anaerobic Blood Culture - Final No Growth Day 5 06/11/18 15:06 Urine Culture - Final Urine No Growth (<1,000 CFU/mL) 06/10/18 17:50 Nasal Screen MRSA (PCR) - Final Nasal Mrsa Not Detected Assess/Plan/Problems-Billing Assessment: - Patient Problems (1) Acute renal failure Current Visit: Yes Status: Acute Comment: -S/P dialysis yesterday (06/17) with only 400 cc of fluid removed -Idiosyncratic suspected synthetic cannabinoid exposure vs. AIN due to Zosyn, likely predisposed by synthetic cannabinoid and chronic frequent NSAID use; pt mentions that he would take at least 800 mg of Ibuprofen for joint pains 4x/ week for years -Of note Zosyn was given on June 12- and pts creatinine began to increase the day after and was abnormal in two days, peaking at 4.90 on 06/17; -CPK was 859 on 06/10 and decreased to normal the next time it was checked on , precluding renal failure via rhabdomyolysis due to initial seizure presentation -Attempted to call Dr. Glover to touch base, but he is unavailable today -Given above history it is highly likely that his witnessed seizures was indeed due to a suspected synthetic cannabinoid and/or strains with very high THC and that acute renal failure was likely due to AIN induced by Zosyn, predisposed by his chronic NSAID use and suspected synthetic cannabinoid exposurealthough documented cases are only for certain synthetics (2) Fluid overload Current Visit: Yes Status: Acute Code(s): E87.70 - FLUID OVERLOAD, UNSPECIFIED SNOMED Code(s): 17129654 Comment: -Likely due to acute renal failure as described -D/W Dr. Tucker who believes that he did not have PNA; cultures reviewed and were negative -Pt denies any F/C, and productive cough and CXR more consistent with overload -Will D/C IVF (3) Seizure Current Visit: Yes Status: Acute Code(s): R56.9 - UNSPECIFIED CONVULSIONS SNOMED Code(s): 92814736 Comment: -Likely due to presumed exposure to synthetic cannabinoid during [employer] [place] -Pt denies decreasing alcohol intake prior to seizures and in fact mentions he has been drinking slightly more during the time when he had his seizures in the music festival. (4) DVT prophylaxis Current Visit: Yes Status: Acute Code(s): [id number] - SNOMED Code(s): 413536324 Comment: -Will place pt on Heparin SQq12H Status and Disposition: -Continue PT -As above
[2018-06-18] MEDS: methylPREDNISolone SOD 40 MG* 1 ML VIAL IV SCH (14:06)
[2018-06-18 15:21] LABS: Hematocrit 27 % (42-52); Mean Corpuscular HGB Conc 33 g/dl (31-36); Mean Corpuscular Hemoglobin 31 pg (27-31); Mean Corpuscular Volume 93 fL (80-94); Mean Platelet Volume 9.5 um3 (7.4-10.4); Platelet Count 247 10^3/ul (150-450); Red Cell Distribution Width 17 % (10.5-15); White Blood Count 11.9 10^3/ul (3.5-10.8)
[2018-06-18 15:31] LABS: INR 1.01 (0.77-1.02)
[2018-06-18 15:38] LABS: EGFR Non-African American 16.8 (>60)
[2018-06-18 16:58] LABS: ABS Basophils 0.1 10^3/ul (0-0.2); ABS Eosinophils 0.3 10^3/ul (0-0.6); ABS Lymphocytes 0.9 10^3/ul (1.0-4.8); ABS Monocytes 0.7 10^3/ul (0-0.8); ABS Neutrophils 9.9 10^3/ul (1.5-7.7); ABS Nucleated RBC 0 10^3/ul; Eosinophil % 2.7 % (0-6); Lymphocyte % 7.3 % (25-47); Nucleated Red Blood Cells % 0
[2018-06-18] MEDS: Heparin VIAL(*) 5000 UNITS/ML VIAL (FIVE THOUSAND) SUBCUT SCH (21:05)
[2018-06-19] MEDS: methylPREDNISolone SOD 40 MG* 1 ML VIAL IV SCH ×2 (00:41→12:56)
[2018-06-19 06:17] LABS: Hematocrit 26 % (42-52); Hemoglobin 8.7 g/dl (14.0-18.0); Mean Corpuscular HGB Conc 33 g/dl (31-36); Mean Corpuscular Hemoglobin 31 pg (27-31); Mean Corpuscular Volume 93 fL (80-94); Mean Platelet Volume 9.3 um3 (7.4-10.4); Platelet Count 234 10^3/ul (150-450); Red Blood Count 2.81 10^6/ul (4.00-5.40); Red Cell Distribution Width 16 % (10.5-15)
[2018-06-19 07:02] LABS: EGFR Non-African American 16.6 (>60)
[2018-06-19] MEDS ORDERED: Magnesium Sulfate 2 GM IV* 2 GM/50 ML BAG IVPB ONE (09:16)
[2018-06-19] MEDS: Thiamine TAB* 100 MG TAB PO SCH (10:13)
[2018-06-19] MEDS: Folic Acid TAB* 1 MG PO SCH (10:13)
[2018-06-19] MEDS: Heparin VIAL(*) 5000 UNITS/ML VIAL (FIVE THOUSAND) SUBCUT SCH ×2 (10:13→21:04)
[2018-06-19] MEDS ORDERED: Acetaminophen TAB* 325 MG ONE (12:53)
[2018-06-19] MEDS: Acetaminophen TAB* 325 MG PO PRN (12:56)
--- NOTE | 2018-06-19 14:50 | PN ---
Subjective Date of Service: 06/19/18 Interval History: Pt seen and examined. Meds and labs reviewed ROS: Mentions that he has had 5-6x loose Bowel movements yesterday. Denied CRUZ/ dizziness, F/C, N/V, CP, SOB, increased cough, sputum production, abd pain, constipation, dysuria, myalgias, arthralgias, throat pain, and new skin lesions. The rest of the 14 point ROS are unremarkable. PHYSICAL EXAM: GEN APPEARANCE: Awake, not in acute distress HEENT: NC/AT, PERRLA, moist oral mucosa, (-) throat erythema NECK: Soft, supple, (-) cervical LAD, (-)JVD HEART: S1S2 WNL, RRR, No MRG CHEST: Slight crackles, bibasal GAE, No /R/R ABD: Soft, ND/NT, NABS 4x Q EXT: No C/C/BLUE +1-2 edema SKIN: Warm to touch PSYCH: No active psychosis, hallucinations, depression, SI/HI Objective Active Medications: Acetaminophen (Tylenol Tab*) 650 mg PO Q6H PRN PRN Reason: FEVER/PAIN Last Admin: 06/19/18 12:56 Dose: 650 mg Albuterol/Ipratropium (Duoneb (Albuterol 2.5 Mg/Ipratropium 0.5 Mg)) 1 neb INH Q4H PRN PRN Reason: SOB/WHEEZING Folic Acid (Folvite Tab*) 1 mg PO DAILY [facility] Last Admin: 06/19/18 10:13 Dose: 1 mg Heparin Sodium (Porcine) (Heparin Flush Picc/Ml/Cvc(*)) 1 - 3 ml FLUSH 0600, 1800 [facility]; Protocol Last Admin: 06/19/18 06:17 Dose: 1 ml Heparin Sodium (Porcine) (Heparin Vial(*)) 5,000 units SUBCUT Q12HR [facility] Last Admin: 06/19/18 10:13 Dose: 5,000 units Methylprednisolone Sodium Succinate (Solu-Medrol 40 Mg) 40 mg IV Q12H [facility] Last Admin: 06/19/18 12:56 Dose: 40 mg Ondansetron HCl (Zofran Inj*) 4 mg IV Q4H PRN PRN Reason: NAUSEA/VOMITING Last Admin: 06/16/18 23:49 Dose: 4 mg Thiamine HCl (Vitamin B-1 Tab*) 100 mg PO DAILY [facility] Last Admin: 06/19/18 10:13 Dose: 100 mg Vital Signs - 8 hr 06/19/18 06/19/18 06/19/18 07:20 11:02 11:28 Temperature 97.7 F 98.0 F Pulse Rate 56 62 Respiratory 16 22 16 Rate Blood Pressure 159/96 158/89 (mmHg) O2 Sat by Pulse 98 99 Oximetry Oxygen Devices in Use Now: None Result Diagrams: 06/19/18 06:06 06/19/18 06:06 Microbiology and Other Data: Microbiology 06/11/18 15:03 Aerobic Blood Culture - Final Blood Venous No Growth Day 5 Anaerobic Blood Culture - Final No Growth Day 5 06/11/18 14:58 Aerobic Blood Culture - Final Blood Venous No Growth Day 5 Anaerobic Blood Culture - Final No Growth Day 5 06/16/18 10:53 Stool Gross Appearance - Final Stool C. difficile DNA Amplification - Final 027 Presumptive NEGATIVE Toxigenic C.diff NEGATIVE 06/10/18 20:45 Aerobic Blood Culture - Final Blood Venous No Growth Day 5 Anaerobic Blood Culture - Final No Growth Day 5 06/11/18 15:06 Urine Culture - Final Urine No Growth (<1,000 CFU/mL) 06/10/18 17:50 Nasal Screen MRSA (PCR) - Final Nasal Mrsa Not Detected Assess/Plan/Problems-Billing Assessment: - Patient Problems (1) Acute renal failure Current Visit: Yes Status: Acute Comment: -For possible re-dialysis in AM -S/P dialysis on 06/17 with only 400 cc of fluid removed -Idiosyncratic suspected synthetic cannabinoid exposure vs. AIN due to Zosyn, likely predisposed by synthetic cannabinoid and chronic frequent NSAID use; pt mentions that he would take at least 800 mg of Ibuprofen for joint pains 4x/ week for years -Of note Zosyn was given on June 12- and pts creatinine began to increase the day after and was abnormal in two days, peaking at 4.90 on 06/17; -CPK was 859 on 06/10 and decreased to normal the next time it was checked on , precluding renal failure via rhabdomyolysis due to initial seizure presentation -Given above history it is highly likely that his witnessed seizures was indeed due to a suspected synthetic cannabinoid and/or strains with very high THC and that acute renal failure was likely due to AIN induced by Zosyn, predisposed by his chronic NSAID use and suspected synthetic cannabinoid exposurealthough documented cases are only for certain synthetics (2) Diarrhea Current Visit: Yes Status: Acute Code(s): R19.7 - DIARRHEA, UNSPECIFIED SNOMED Code(s): 08702435 Comment: -Will obtain stool WBC and C. diff, and if negative, can place pt on Imodium PRN (3) Fluid overload Current Visit: Yes Status: Acute Code(s): E87.70 - FLUID OVERLOAD, UNSPECIFIED SNOMED Code(s): 67679927 Comment: -Slightly improved since IVF has been D/Cd -Likely due to acute renal failure as described -D/W Dr. Tucker who believes that he did not have PNA; cultures reviewed and were negative -Pt denies any F/C, and productive cough and CXR more consistent with overload -Continue to hold IVF (4) Seizure Current Visit: Yes Status: Acute Code(s): R56.9 - UNSPECIFIED CONVULSIONS SNOMED Code(s): 69929389 Comment: -Likely due to presumed exposure to synthetic cannabinoid during [employer] [place] -Pt denies decreasing alcohol intake prior to seizures and in fact mentions he has been drinking slightly more during the time when he had his seizures in the music festival. (5) DVT prophylaxis Current Visit: Yes Status: Acute Code(s): RPX3575 - SNOMED Code(s): 546569986 Comment: -Continue on Heparin SQq12H Status and Disposition: -Continue PT -As above
[2018-06-19] MEDS: Ondansetron INJ* 2 MG/ML VIAL IV PRN (18:23)
[2018-06-19] MEDS ORDERED: Loperamide CAP* 2 MG PO PRN (20:39)
[2018-06-20] MEDS: methylPREDNISolone SOD 40 MG* 1 ML VIAL IV SCH ×2 (00:14→13:03)
[2018-06-20] MEDS: Acetaminophen TAB* 325 MG PO PRN ×2 (00:21→10:00)
[2018-06-20 06:20] LABS: Hematocrit 28 % (42-52); Hemoglobin 9.4 g/dl (14.0-18.0); Mean Corpuscular HGB Conc 34 g/dl (31-36); Mean Corpuscular Hemoglobin 31 pg (27-31); Mean Corpuscular Volume 92 fL (80-94); Mean Platelet Volume 9.6 um3 (7.4-10.4); Platelet Count 298 10^3/ul (150-450); Red Blood Count 3.01 10^6/ul (4.00-5.40); Red Cell Distribution Width 17 % (10.5-15); White Blood Count 13.3 10^3/ul (3.5-10.8)
[2018-06-20 06:25] LABS: ABS Basophils 0 10^3/ul (0-0.2); ABS Eosinophils 0 10^3/ul (0-0.6); ABS Lymphocytes 0.6 10^3/ul (1.0-4.8); ABS Monocytes 0.3 10^3/ul (0-0.8); ABS Neutrophils 12.3 10^3/ul (1.5-7.7); ABS Nucleated RBC 0 10^3/ul; Eosinophil % 0.2 % (0-6); Lymphocyte % 4.4 % (25-47); Nucleated Red Blood Cells % 0.1
[2018-06-20 06:29] LABS: EGFR Non-African American 15.9 (>60)
[2018-06-20] MEDS ORDERED: Loperamide CAP* 2 MG PO PRN (09:24)
[2018-06-20] MEDS: Heparin VIAL(*) 5000 UNITS/ML VIAL (FIVE THOUSAND) SUBCUT SCH ×2 (09:29→20:43)
[2018-06-20] MEDS: Thiamine TAB* 100 MG TAB PO SCH (09:29)
[2018-06-20] MEDS: Folic Acid TAB* 1 MG PO SCH (09:29)
--- NOTE | 2018-06-20 17:05 | PN ---
Subjective Date of Service: 06/20/18 - ] Interval History: Pt seen and examined. Meds and labs reviewed. Pts at bedside and pt asked the same questions as he did during the weekends. understand pts hospital course, diagnosis, and current therapeutic plans and satisfied with the care her has received. ROS: Denied CRUZ/dizziness, F/C, N/V, CP, SOB, increased cough, sputum production , abd pain, diarrhea, constipation, dysuria, myalgias, arthralgias, throat pain , and new skin lesions. The rest of the 14 point ROS are unremarkable. PHYSICAL EXAM: GEN APPEARANCE: Awake, not in acute distress HEENT: NC/AT, PERRLA, moist oral mucosa, (-) throat erythema NECK: Soft, supple, (-) cervical LAD, (-)JVD HEART: S1S2 WNL, RRR, No MRG CHEST: Slight crackles, bibasal GAE, No /R/R ABD: Soft, ND/NT, NABS 4x Q EXT: No C/C/BLUE +1-2 edema SKIN: Warm to touch PSYCH: No active psychosis, hallucinations, depression, SI/HI Objective Active Medications: Acetaminophen (Tylenol Tab*) 650 mg PO Q6H PRN PRN Reason: FEVER/PAIN Last Admin: 06/20/18 10:00 Dose: 650 mg Albuterol/Ipratropium (Duoneb (Albuterol 2.5 Mg/Ipratropium 0.5 Mg)) 1 neb INH Q4H PRN PRN Reason: SOB/WHEEZING Folic Acid (Folvite Tab*) 1 mg PO DAILY [facility] Last Admin: 06/20/18 09:29 Dose: 1 mg Heparin Sodium (Porcine) (Heparin Flush Picc/Ml/Cvc(*)) 1 - 3 ml FLUSH 0600, 1800 [facility]; Protocol Last Admin: 06/20/18 05:58 Dose: 1 ml Heparin Sodium (Porcine) (Heparin Vial(*)) 5,000 units SUBCUT Q12HR [facility] Last Admin: 06/20/18 09:29 Dose: 5,000 units Loperamide HCl (Imodium Cap*) 2 mg PO .SEE DIRECTIONS PRN PRN Reason: DIARRHEA Last Admin: 06/19/18 21:04 Dose: 2 mg Loperamide HCl (Imodium Cap*) 2 mg PO .SEE DIRECTIONS PRN PRN Reason: DIARRHEA Methylprednisolone Sodium Succinate (Solu-Medrol 40 Mg) 40 mg IV Q12H [facility] Last Admin: 06/20/18 13:03 Dose: 40 mg Ondansetron HCl (Zofran Inj*) 4 mg IV Q4H PRN PRN Reason: NAUSEA/VOMITING Last Admin: 06/19/18 18:23 Dose: 4 mg Thiamine HCl (Vitamin B-1 Tab*) 100 mg PO DAILY [facility] Last Admin: 06/20/18 09:29 Dose: 100 mg Vital Signs - 8 hr 06/20/18 11:11 Temperature 97.8 F Pulse Rate 80 Respiratory 18 Rate Blood Pressure 146/67 (mmHg) O2 Sat by Pulse 99 Oximetry Oxygen Devices in Use Now: None Result Diagrams: 06/20/18 05:52 06/20/18 05:52 Microbiology and Other Data: Microbiology 06/11/18 15:03 Aerobic Blood Culture - Final Blood Venous No Growth Day 5 Anaerobic Blood Culture - Final No Growth Day 5 06/11/18 14:58 Aerobic Blood Culture - Final Blood Venous No Growth Day 5 Anaerobic Blood Culture - Final No Growth Day 5 06/16/18 10:53 Stool Gross Appearance - Final Stool C. difficile DNA Amplification - Final 027 Presumptive NEGATIVE Toxigenic C.diff NEGATIVE 06/10/18 20:45 Aerobic Blood Culture - Final Blood Venous No Growth Day 5 Anaerobic Blood Culture - Final No Growth Day 5 06/11/18 15:06 Urine Culture - Final Urine No Growth (<1,000 CFU/mL) 06/10/18 17:50 Nasal Screen MRSA (PCR) - Final Nasal Mrsa Not Detected Assess/Plan/Problems-Billing Assessment: - Patient Problems (1) Acute renal failure Current Visit: Yes Status: Acute Comment: -Spoke with Dr. Glover this AM and he mentioned that given pts rate of increasing Creatinine is much lower than on presentation, that he would like to observe the pt for a few more days to determine whether repeat dialysis, given this -S/P dialysis on 06/17 with only 400 cc of fluid removed -Idiosyncratic suspected synthetic cannabinoid exposure vs. AIN due to Zosyn, likely predisposed by synthetic cannabinoid and chronic frequent NSAID use; pt mentions that he would take at least 800 mg of Ibuprofen for joint pains 4x/ week for years -Of note Zosyn was given on June 12 and pts creatinine began to increase the day after and was abnormal in two days, peaking at 4.90 on 06/17; -CPK was 859 on 06/10 and decreased to normal the next time it was checked on , precluding renal failure via rhabdomyolysis due to initial seizure presentation -Given above history it is highly likely that his witnessed seizures was indeed due to a suspected synthetic cannabinoid and/or strains with very high THC and that acute renal failure was 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 diff are negative -Will place pt on Imodium PRN (3) Fluid overload Current Visit: Yes Status: Acute Code(s): E87.70 - FLUID OVERLOAD, UNSPECIFIED SNOMED Code(s): 29001407 Comment: -Slightly improved since IVF has been D/Cd -Likely due to acute renal failure as described -D/W Dr. Tucker who believes that he did not have PNA; cultures reviewed and were negative -Pt denies any F/C, and productive cough and CXR more consistent with overload -Continue to hold IVF (4) Seizure Current Visit: Yes Status: Acute Code(s): R56.9 - UNSPECIFIED CONVULSIONS SNOMED Code(s): 02577279 Comment: -Likely due to presumed exposure to synthetic cannabinoid during [employer] [place] -Pt denies decreasing alcohol intake prior to seizures and in fact mentions he has been drinking slightly more during the time when he had his seizures in the music [place]. (5) DVT prophylaxis Current Visit: Yes Status: Acute Code(s): FGR0367 - SNOMED Code(s): 587995731 Comment: -Continue on Heparin SQq12H Status and Disposition: -Continue PT -Will continue to follow renal function as suggested by Dr. Glover and will defer
[2018-06-21] MEDS: Acetaminophen TAB* 325 MG PO PRN (00:52)
[2018-06-21] MEDS: methylPREDNISolone SOD 40 MG* 1 ML VIAL IV SCH ×2 (00:53→09:35)
[2018-06-21] MEDS: Ondansetron INJ* 2 MG/ML VIAL IV PRN (01:05)
[2018-06-21] MEDS ORDERED: Melatonin 3 MG TAB PO PRN (01:12)
[2018-06-21 06:16] LABS: ABS Basophils 0 10^3/ul (0-0.2); ABS Eosinophils 0 10^3/ul (0-0.6); ABS Lymphocytes 0.5 10^3/ul (1.0-4.8); ABS Monocytes 0.3 10^3/ul (0-0.8); ABS Nucleated RBC 0 10^3/ul; Eosinophil % 0.1 % (0-6); Hematocrit 25 % (42-52); Hemoglobin 8.2 g/dl (14.0-18.0); Lymphocyte % 4.2 % (25-47); Mean Corpuscular HGB Conc 33 g/dl (31-36); Mean Corpuscular Hemoglobin 31 pg (27-31); Mean Corpuscular Volume 93 fL (80-94); Mean Platelet Volume 9.4 um3 (7.4-10.4); Nucleated Red Blood Cells % 0; Platelet Count 341 10^3/ul (150-450); Red Blood Count 2.69 10^6/ul (4.00-5.40); Red Cell Distribution Width 17 % (10.5-15); White Blood Count 11.9 10^3/ul (3.5-10.8)
[2018-06-21 06:32] LABS: EGFR Non-African American 17.5 (>60)
[2018-06-21] MEDS: Thiamine TAB* 100 MG TAB PO SCH (08:42)
[2018-06-21] MEDS: Folic Acid TAB* 1 MG PO SCH (08:42)
[2018-06-21] MEDS: Heparin VIAL(*) 5000 UNITS/ML VIAL (FIVE THOUSAND) SUBCUT SCH (08:42)
[2018-06-21] MEDS ORDERED: Mouth Piece, Nicotine* 1 EACH CARTRIDGE INH PRN (08:58)
[2018-06-21] MEDS: Nicotine Inhaler* 10 MG AMP INH PRN ×2 (09:35→17:24)
[2018-06-21 14:16] LABS: Hematocrit 26 % (42-52); Hemoglobin 8.6 g/dl (14.0-18.0); Mean Corpuscular HGB Conc 33 g/dl (31-36); Mean Corpuscular Hemoglobin 31 pg (27-31); Mean Corpuscular Volume 93 fL (80-94); Mean Platelet Volume 9.2 um3 (7.4-10.4); Platelet Count 383 10^3/ul (150-450); Red Blood Count 2.79 10^6/ul (4.00-5.40); Red Cell Distribution Width 17 % (10.5-15); White Blood Count 13.1 10^3/ul (3.5-10.8)
[2018-06-21 14:47] LABS: ABS Basophils 0.1 10^3/ul (0-0.2); ABS Eosinophils 0 10^3/ul (0-0.6); ABS Lymphocytes 0.5 10^3/ul (1.0-4.8); ABS Monocytes 0.3 10^3/ul (0-0.8); ABS Neutrophils 12.2 10^3/ul (1.5-7.7); ABS Nucleated RBC 0 10^3/ul; Eosinophil % 0 % (0-6); Lymphocyte % 3.7 % (25-47); Nucleated Red Blood Cells % 0
--- NOTE | 2018-06-21 16:44 | PN ---
Subjective Date of Service: 06/21/18 Interval History: Pt seen and examined. Meds and labs reviewed CC: BRBPR ROS: BRBPR. Denied CRUZ/dizziness, F/C, N/V, CP, SOB, increased cough, sputum production, abd pain, diarrhea, constipation, dysuria, myalgias, arthralgias, throat pain, and new skin lesions. The rest of the 14 point ROS are unremarkable. PHYSICAL EXAM: GEN APPEARANCE: Awake, not in acute distress HEENT: NC/AT, PERRLA, moist oral mucosa, (-) throat erythema NECK: Soft, supple, (-) cervical LAD, (-)JVD HEART: S1S2 WNL, RRR, No MRG CHEST: CTA, BL, GAE, No W/R/R ABD: Soft, ND/NT, NABS 4x Q EXT: No C/C/BLLE and BLUE edema +1 SKIN: Warm to touch PSYCH: No active psychosis, hallucinations, depression, SI/HI Objective Active Medications: Acetaminophen (Tylenol Tab*) 650 mg PO Q6H PRN PRN Reason: FEVER/PAIN Last Admin: 06/21/18 00:52 Dose: 650 mg Albuterol/Ipratropium (Duoneb (Albuterol 2.5 Mg/Ipratropium 0.5 Mg)) 1 neb INH Q4H PRN PRN Reason: SOB/WHEEZING Device (Nicotine Mouth Piece*) 1 each INH .USE WITH NICOTROL PRN PRN Reason: CRAVING Last Admin: 06/21/18 09:35 Dose: 1 each Folic Acid (Folvite Tab*) 1 mg PO DAILY [facility] Last Admin: 06/21/18 08:42 Dose: 1 mg Heparin Sodium (Porcine) (Heparin Flush Picc/Ml/Cvc(*)) 1 - 3 ml FLUSH 0600, 1800 [facility]; Protocol Last Admin: 06/21/18 06:05 Dose: 1 ml Loperamide HCl (Imodium Cap*) 2 mg PO .SEE DIRECTIONS PRN PRN Reason: DIARRHEA Last Admin: 06/19/18 21:04 Dose: 2 mg Loperamide HCl (Imodium Cap*) 2 mg PO .SEE DIRECTIONS PRN PRN Reason: DIARRHEA Melatonin (Melatonin) 3 mg PO BEDTIME PRN PRN Reason: SLEEP Last Admin: 06/21/18 01:46 Dose: 3 mg Methylprednisolone Sodium Succinate (Solu-Medrol 40 Mg) 40 mg IV DAILY [facility] Last Admin: 06/21/18 09:35 Dose: 40 mg Nicotine (Nicotine Inhaler*) 10 mg INH Q2H PRN PRN Reason: CRAVING Last Admin: 06/21/18 09:35 Dose: 10 mg Ondansetron HCl (Zofran Inj*) 4 mg IV Q4H PRN PRN Reason: NAUSEA/VOMITING Last Admin: 06/21/18 01:05 Dose: 4 mg Thiamine HCl (Vitamin B-1 Tab*) 100 mg PO DAILY [facility] Last Admin: 06/21/18 08:42 Dose: 100 mg Vital Signs - 8 hr 06/21/18 11:39 Temperature 98.0 F Pulse Rate 66 Respiratory 20 Rate Blood Pressure 157/87 (mmHg) O2 Sat by Pulse 96 Oximetry Oxygen Devices in Use Now: None Result Diagrams: 06/21/18 13:55 06/21/18 06:05 Microbiology and Other Data: Microbiology 06/11/18 15:03 Aerobic Blood Culture - Final Blood Venous No Growth Day 5 Anaerobic Blood Culture - Final No Growth Day 5 06/11/18 14:58 Aerobic Blood Culture - Final Blood Venous No Growth Day 5 Anaerobic Blood Culture - Final No Growth Day 5 06/16/18 10:53 Stool Gross Appearance - Final Stool C. difficile DNA Amplification - Final 027 Presumptive NEGATIVE Toxigenic C.diff NEGATIVE 06/10/18 20:45 Aerobic Blood Culture - Final Blood Venous No Growth Day 5 Anaerobic Blood Culture - Final No Growth Day 5 06/11/18 15:06 Urine Culture - Final Urine No Growth (<1,000 CFU/mL) 06/10/18 17:50 Nasal Screen MRSA (PCR) - Final Nasal Mrsa Not Detected Assess/Plan/Problems-Billing Assessment: - Patient Problems (1) BRBPR (bright red blood per rectum) Current Visit: Yes Status: Acute Code(s): K62.5 - HEMORRHAGE OF ANUS AND RECTUM SNOMED Code(s): 368148889 Comment: -BRBPR -D/C'd DVT prophylaxis and sent type and screen STAT -Repeat H&H is reassuring--another H&H will be done at 2100 and will S/O to night coverage--??internal hemorrhoids? -Unfortunately, No GI coverage for today--consider GI consult in AM (2) Acute renal failure Current Visit: Yes Status: Acute Comment: -Spoke with Dr. Glover this AM and creatinine has improved: To F/U with Dr. Glover 1 wk post D/C -S/P dialysis on 06/17 with only 400 cc of fluid removed -Idiosyncratic suspected synthetic cannabinoid exposure vs. AIN due to Zosyn, likely predisposed by synthetic cannabinoid and chronic frequent NSAID use; pt mentions that he would take at least 800 mg of Ibuprofen for joint pains 4x/ week for years -Of note Zosyn was given on June 12- and pts creatinine began to increase the day after and was abnormal in two days, peaking at 4.90 on 06/17; -CPK was 859 on 06/10 and decreased to normal the next time it was checked on , precluding renal failure via rhabdomyolysis due to initial seizure presentation -Given above history it is highly likely that his witnessed seizures was indeed due to a suspected synthetic cannabinoid and/or strains with very high THC and that acute renal failure 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 Tucker who believes that he did not have PNA; cultures reviewed and were negative -Pt denies any F/C, and productive cough and CXR more consistent with overload -Continue to hold IVF (4) Seizure Current Visit: Yes Status: Acute Code(s): R56.9 - UNSPECIFIED CONVULSIONS SNOMED Code(s): 32616677 Comment: -Likely due to presumed exposure to synthetic cannabinoid during [employer] [place] as well hyponatremia on presentation -Pt denies decreasing alcohol intake prior to seizures and in fact mentions he has been drinking slightly more during the time when he had his seizures in the music [place]. (5) DVT prophylaxis Current Visit: Yes Status: Acute Code(s): HNG0729 - SNOMED Code(s): 064395617 Comment: -Continue on Heparin SQq12H Status and Disposition: -Continue PT -Will continue to follow renal function as suggested by Dr. Glover and will defer
[2018-06-21 21:04] LABS: Hematocrit 25 % (42-52); Hemoglobin 8.5 g/dl (14.0-18.0); Mean Corpuscular HGB Conc 33 g/dl (31-36); Mean Corpuscular Hemoglobin 31 pg (27-31); Mean Corpuscular Volume 93 fL (80-94); Platelet Count 433 10^3/ul (150-450); Red Blood Count 2.74 10^6/ul (4.00-5.40); Red Cell Distribution Width 17 % (10.5-15); White Blood Count 13.9 10^3/ul (3.5-10.8)
[2018-06-21 21:34] LABS: ABS Basophils 0.1 10^3/ul (0-0.2); ABS Eosinophils 0 10^3/ul (0-0.6); ABS Neutrophils 11.9 10^3/ul (1.5-7.7); ABS Nucleated RBC 0 10^3/ul; Eosinophil % 0.1 % (0-6); Nucleated Red Blood Cells % 0
[2018-06-22 07:01] LABS: ABS Basophils 0 10^3/ul (0-0.2); ABS Eosinophils 0.2 10^3/ul (0-0.6); ABS Lymphocytes 1.3 10^3/ul (1.0-4.8); ABS Monocytes 0.9 10^3/ul (0-0.8); ABS Neutrophils 8.8 10^3/ul (1.5-7.7); ABS Nucleated RBC 0 10^3/ul; Eosinophil % 1.8 % (0-6); Hematocrit 27 % (42-52); Lymphocyte % 11.7 % (25-47); Mean Corpuscular HGB Conc 33 g/dl (31-36); Mean Corpuscular Hemoglobin 32 pg (27-31); Mean Corpuscular Volume 96 fL (80-94); Mean Platelet Volume 9.3 um3 (7.4-10.4); Nucleated Red Blood Cells % 0; Platelet Count 363 10^3/ul (150-450); Red Blood Count 2.86 10^6/ul (4.00-5.40); Red Cell Distribution Width 17 % (10.5-15); White Blood Count 11.3 10^3/ul (3.5-10.8)
[2018-06-22] MEDS: Thiamine TAB* 100 MG TAB PO SCH (07:33)
[2018-06-22] MEDS: Folic Acid TAB* 1 MG PO SCH (07:33)
[2018-06-22] MEDS: Nicotine Inhaler* 10 MG AMP INH PRN (07:33)
[2018-06-22] MEDS: methylPREDNISolone SOD 40 MG* 1 ML VIAL IV SCH (07:33)
[2018-06-22 08:01] LABS: EGFR Non-African American 17.3 (>60)
[2018-06-22] MEDS ORDERED: Magnesium Sulfate 2 GM IV* 2 GM/50 ML BAG IVPB ONE (11:00)
[2018-06-22 11:54] VITALS: BP 135/101
--- NOTE | 2018-06-24 02:52 | DS ---
AMENDED REPORT NOW INCLUDES ADDENDUM CC: Dr. Edgar Glover; Dr. Farnsworth in [place] * DISCHARGE SUMMARY: DATE OF ADMISSION: 06/10/18. DATE OF DISCHARGE: 06/22/18. PRIMARY CARE PROVIDER: None. MY ATTENDING WHILE IN THE HOSPITAL: Dr. Emilee Albert.* (DICTATED BY LORI HENLEY) PRIMARY DISCHARGE DIAGNOSES: 1. Seizure due to alcohol withdrawal. 2. Acute renal failure, likely due to interstitial nephritis. 3. Alcoholism. 4. Probable aspiration pneumonia. SECONDARY DISCHARGE DIAGNOSES: 1. Chronic humerus fracture. 2. Chronic clavicle fracture. STUDIES DONE WHILE IN THE HOSPITAL: Left humerus x-ray from 06/10/18, read as [id number] appearing fracture of the left clavicle, osteoarthritis. Shoulder x-ray from 06/10/18, read as [id number] appearing fracture of the left clavicle, osteoarthritis. Brain CT from 06/10/18, read as no acute intracranial process, involutional changes, stigmata of chronic small vessel disease evident. Cervical spine CT from 06/10/18, read as no CT evidence for traumatic cervical spine injury. Electroencephalogram from 06/11/18, read as limited EEG. No evidence of epileptiform activity, normal background rhythm could be seen during the recording. Chest x-ray from 06/11/18, read as left basilar airspace consolidation concerning for pneumonia given the clinical context. Stigmata of obstructive lung disease. Renal ultrasound read as, no evidence of hydronephrosis or obstruction, small amount of peritoneal free fluid and perinephric fluid. Chest x-ray from 06/17/18, read as status post central venous catheter placement , no evidence of pneumothorax, bilateral infiltrates consistent with pulmonary edema or pneumonia. MEDICATIONS AT DISCHARGE: 1. Tylenol 650 mg p.o. q.6 hours as needed. 2. Folic acid 1 mg p.o. daily. 3. Loperamide 2 mg p.o. after his bowel movements. 4. Thiamine 100 mg p.o. daily. 5. Prednisone 40 mg p.o. daily with taper. HOSPITAL COURSE: This is a brief summary of the patient's presentation. For more details, please see the history and physical from Paddy Lamar NP, on . In brief, the patient is a 48-year-old male with past medical history significant for the above, who presented to the hospital after having what appeared to be a seizure [place] the [employer]. The patient was very confused upon presentation. The patient has never had a seizure before. The patient had been drinking for at least 6 years. The patient was believed to be going through alcohol withdrawal with withdrawal seizures. The patient had CT as above. The patient had an elevated lactic acid, low sodium, slightly elevated CK, alkaline phosphatase, AST, bilirubin and low magnesium. The patient's lactic acid was initially 4, but decreased quickly to 2.1. The patient was seen in consultation by Dr. Keith Chavira of neurology. The patient was started on Protonix, folic acid, magnesium, and phenobarbital for control of his seizures. The patient had an EEG, which was read as above. The patient was continued on a WA protocol. The patient's cortisol was elevated likely due to seizure. The patient's sodium quickly improved from 125 to 139. The patient was sedated with a Precedex drip as well as Ativan. The patient began to have oxygen requirement. On 06/11/18, the patient had a chest x-ray read as above with concern for pneumonia. The patient had elevated temperatures. The patient was started on vancomycin and Zosyn. Blood and urine cultures were sent. The patient was continued on IV hydration. The patient's mental status improved. The patient's hypoxia improved on antibiotics. On 06/13/18, the patient's glucose went up to 530, which may have been artifactual as point of care glucose at the time was 136, and his creatinine increased from 0.58 to 1.1. The patient throughout his hospital stay has a very low albumin likely reflecting poor nutrition status. The patient's magnesium improved with repletion. On 06/14/18, the patient's creatinine continued to increase. Renal ultrasound was negative as above. The patient's vancomycin and Zosyn were stopped due to concern for LAURIE. The patient 's blood and urine cultures were all negative. The patient's creatinine continued to increase. The patient had dialysis x1, on 06/17/18. The patient was seen in consultation by Dr. Edgar Glover, on 06/17/18. I believe this was due to acute interstitial nephritis or due to Zosyn or some synthetic marijuana or bath salts. The patient responded well to dialysis. The patient was transferred out of the ICU on 06/18/18. The patient was fluid overloaded and his IV fluids were decreased. The patient had 400 mL taken off with dialysis. The patient developed diarrhea at this time, which was treated successfully with Imodium. The patient had C. Diff tests negative x2. The patient continued to improve clinically, however, his creatinine stabilized around 3.7. On 06/22/18, the patient was very anxious for discharge and said he would leave against medical advise if he were not discharged. The patient's prognosis was discussed with Dr. Edgar Glover, who believed that his renal function will continue to improve and that he was stable for discharge with a low likelihood of complications related to his renal failure. The patient stated that he would followup closely with his primary care provider, whose name he could not remember in [place] and that he would instruct him to get records from this facility. The patient was instructed to stop drinking, avoid synthetic marijuana, monitor his urine output and followup closely with his primary care provider as well as a wrapper leaf inspector if possible in [place]. The patient was started on steroids on 06/18/18 with a rise in his white blood cell count staying around 11,000 daily. PHYSICAL EXAM ON THE DAY OF DISCHARGE: General: The patient is a 48-year-old male, who appears older than stated age, and sitting in the bed, in no acute distress. There is pressured speech and frenetic movements. Vital Signs: At the time of discharge, temperature 98.6, pulse rate 68, respiratory rate 16, oxygen saturation 96% on room air, blood pressure 135/101. HEENT: Head: Normocephalic, atraumatic. Sclerae anicteric. No conjunctival injection. Nasal mucosa is moist. Oral mucosa moist. No pharyngeal erythema, discharge, or exudate. Neck: Supple, nontender. No lymphadenopathy. No carotid bruits auscultated. No JVD. Cardiac: Regular rate and rhythm. No clicks, murmurs, gallops, or rubs. Pulses are 2+ in the bilateral dorsalis pedis, posterior tibialis, and radial areas. Respiratory: Clear to auscultation bilaterally. No wheezes, rales, or rhonchi. Good aeration bilaterally. Abdomen: Soft, nontender, nondistended. Bowel sounds present, normoactive in all 4 quadrants. No hepatosplenomegaly. No abdominal bruit auscultated. No hepatojugular reflux. Genitourinary: No suprapubic or CVA tenderness. Skin: Clean, dry, and intact. No rash. Former IJ site in the right side of the neck no longer bleeding. Neuro: Cranial nerves II through XII intact. No focal deficits. Alert and oriented x3. Psychiatric: Pleasant and cooperative with pressured speech and visible signs of anxiety. LABORATORY ON THE DAY OF DISCHARGE: White blood cell count 1.3, hemoglobin 9.0. Sodium 133, potassium 3.9, chloride 98, carbon dioxide 26, anion gap 9, BUN 36, creatinine 3.74, glucose 74, calcium 9.1, phosphorus 3.7, magnesium 1.8 , bilirubin 0.5, AST 33, ALT 24, alkaline phosphatase 179, protein 6.0, albumin 3.9, globulin 3.1. DISCHARGE PLAN: The patient was counseled that his discharge was dependent on close followup. The patient stated that he understood and would followup closely with his primary care provider in [place], though he states that he has not previously seen this provider, when discussed that he might not be able to be seen closely, the patient stated that if this was the case he would call back to the hospital and being set up with the [facility]. However , he was not in favor of this option given if he would be able to be seen by the primary care provider in [place] due to the drive back and forth from [place]. The patient stated that he would return to the hospital for any symptoms such as seizures, anuria, fasciculations, passing out, severe shortness of breath, chest pain. The patient stated he will have a repeat BMP in 1 week to monitor his kidney function. The patient stated that he would not drink. However, while being taken out by the nurse, the patient stated that he likely would continue drinking, though his significant other significantly opposed to this idea. The patient through his primary care provider should have routine lab work to assess for improvement in his kidney function. The patient should be continued on steroid taper for treatment of acute interstitial nephritis. The patient should take vitamins as above due to history of alcoholism and anemia. The patient should attend Alcoholics Anonymous with help for maintaining sobriety. The patient should avoid illicit drug use. The patient was instructed to wear a sling for his chronic left-sided clavicle injury, however, he refused. The patient should follow up with an orthopedist for management of this chronic fracture. The patient should have a renal diet. The patient should engage in activity as tolerated. TIME SPENT: Approximately 75 minutes was spent on this discharge, 45 of which was spent [id number] with the patient obtaining physical and discussing treatment plan. LORI HENLEY ADDENDUM: CC: Dr. Farnsworth PRIMARY CARE PROVIDER: Dr. Farnsworth in [place]. LORI HENLEY [id number]/CPS #: [id number]/CPS #: [id number] [facility]
--- NOTE | 2018-06-24 12:35 | DS ---
CC: Dr. Farnsworth DISCHARGE SUMMARY: ADDENDUM: PRIMARY CARE PROVIDER: Dr. Farnsworth in [place]. LORI HENLEY [id number]/CPS #: [id number] MTDD
== END 2018-06-22 15:45 | disposition home health service (06) | DRG 775 ==
LOC: ED 11:22 → ICU 15:16 → MED 06-18 00:46
PROVIDERS: ADMIT Internal Medicine; ATTEND Student in an Organized Health Care Education/Training Program
PROC: 4A00X4Z Measurement of Central Nervous Electrical Activity, External Approach (ICD-10-PCS; principal; 2018-06-10)
PROC: 05HM33Z Insertion of Infusion Device into Right Internal Jugular Vein, Percutaneous Approach (ICD-10-PCS; 2018-06-17)
PROC: B543ZZA Ultrasonography of Right Jugular Veins, Guidance (ICD-10-PCS; 2018-06-17)
PROC: 5A1D70Z Performance of Urinary Filtration, Intermittent, Less than 6 Hours Per Day (ICD-10-PCS; 2018-06-17)
DX: F10.231 Alcohol dependence with withdrawal delirium (principal); J69.0 Pneumonitis due to inhalation of food and vomit; E43 Unspecified severe protein-calorie malnutrition; E87.1 Hypo-osmolality and hyponatremia; G40.89 Other seizures; N17.9 Acute kidney failure, unspecified; M84.422A Pathological fracture, left humerus, initial encounter for fracture; N12 Tubulo-interstitial nephritis, not specified as acute or chronic; E87.2 Acidosis; M84.412A Pathological fracture, left shoulder, initial encounter for fracture; R09.02 Hypoxemia; E87.70 Fluid overload, unspecified; R19.7 Diarrhea, unspecified; F10.239 Alcohol dependence with withdrawal, unspecified; F17.210 Nicotine dependence, cigarettes, uncomplicated; R40.2412 Glasgow coma scale score 13-15, at arrival to emergency department; Y90.0 Blood alcohol level of less than 20 mg/100 ml; F12.90 Cannabis use, unspecified, uncomplicated; E87.6 Hypokalemia; D69.59 Other secondary thrombocytopenia; M19.012 Primary osteoarthritis, left shoulder; Z68.22 Body mass index [BMI] 22.0-22.9, adult; Z81.1 Family history of alcohol abuse and dependence; Z80.3 Family history of malignant neoplasm of breast
CPT/HCPCS: 36415; 70450; 71045; 72125; 76775; 80048; 80053; 80202; 80307; 80320; 81003; 81015; 82140; 82272; 82533; 82550; 82565; 82570; 82947; 83605; 83630; 83735; 83930; 83935; 84100; 84300; 84520; 85025; 85027; 85060; 85610; 85730; 86704; 86706; 86803; 86850; 86900; 86901; 87040; 87086; 87340; 87493; 87641; 89190; 90935; 94667; 95816; 97530; 99284; A9270-GY; G0257; G0480; G8978-GP-CL; G8979-GP-CH; J0610; J1644; J1885; J2060; J2405; J2543; J2560; J2920; J3010; J3370; J3411; J3475; J3480